=== PATIENT | male | born 1960 | race Caucasian/White ===

== ENCOUNTER → 2017-11-05 07:23 | Outpatient (CLI) | payer OTHER, SELFPAY ==
[2017-11-05 08:53] LABS: ALB/GLOB Ratio 1.3 RATIO (0.9-2.4); AST(SGOT) 18 U/L (15-37); Alanine Aminotransfer ALT/SGPT 30 U/L (16-61); Albumin, Serum 3.8 g/dL (3.2-5.0); Alkaline Phosphatase 50 U/L (45-117); Anion Gap 8 (5-15); BUN 21 mg/dL (7-18); Calcium,Total 8.6 mg/dL (8.5-10.1); Chloride 104 mmol/L (98-107); Cholesterol 149 mg/dL (200); EST Glomerular Filtration Rate 82 mL/min (>60); Est Glom Filt Rate - Afr Amer 100 mL/min (>60); Glucose 102 mg/dL (74-106); High Density Lipoprotein 42 mg/dL; PSA,Total - Annual Screen 2.77 ng/mL (0.00-4.00); Potassium 4.2 mmol/L (3.5-5.1); Protein, Total 6.8 g/dL (6.4-8.2); Sodium Level 142 mmol/L (136-145); Thyroid Stim Hormone (TSH) 2.89 uIU/mL (0.358-3.74); Triglycerides 119 mg/dL; Very Low Density Lipoprotein 24 mg/dL (5-40)
[2017-11-06 10:26] LABS: Vitamin B12 1195 pg/mL (211-911)
== END ==
PROVIDERS: Family Provider Family Medicine; PCP Family Medicine
DX: I10 Essential (primary) hypertension (principal); E78.00 Pure hypercholesterolemia, unspecified; E53.8 Deficiency of other specified B group vitamins; Z12.5 Encounter for screening for malignant neoplasm of prostate
CPT/HCPCS: 36415; 80053; 80061; 82607; 83735; 84153; 84443; G0103

== ENCOUNTER 2018-03-10 11:23 | Day surgery (SDC) | payer OTHER, SELFPAY ==
--- NOTE | 2018-03-07 13:50 | HP.PCM_ITS ---
History and Physical Date of Admission: 03/07/18 HISTORY AND PHYSICAL ? Jd Baumann 1960 ? REFERRING PHYSICIAN: ??Self ? CHIEF COMPLAINT: ??Consult (colonoscopy) ? HPI: The patient is a 57 year old male referred for endoscopy. ?Jd notes a personal history of colon polyps. ?Most recent colonoscopy with polypectomy was in 2014 which demonstrated a tubular adenoma, 3-year follow-up recommended. ?He denies any change in bowel habits, weight changes, blood in stools, black tarry stools or abdominal pain. ?He notes a family history of colon cancer in a maternal grandfather, no first-degree relatives with colon cancer. ? ?Patient notes a history of acid reflux, underwent EGD by Dr. Spears in October 2016. ?He was noted to have significant esophagitis concerning for Red's, with final pathology negative for Red's. ?Dr. Spears recommended repeat EGD in 3 years as well as daily PPI, which patient has been taking as instructed and notes this has helped significantly with his reflux. ? Patient's medical history is significant for hypertension, hypercholesterolemia. ?He denies any cardiac or pulmonary issues. ?Denies problems with sedation in the past. ? ? PAST MEDICAL HISTORY PAST MEDICAL HISTORY Diagnosis Date ? High cholesterol ? ? HTN (hypertension) ? ? Kidney stone ? ? ? PAST SURGICAL HISTORY PAST SURGICAL HISTORY Procedure Laterality Date ? COLONOS W/REM POLYP SNARE ? 03/02/13 ? multiple polyps ? COLONOS W/REM POLYP SNARE ? 07/26/14 ? small polyp proximal transverse colon - 3 year follow up ? COLONOSCOP W/ OR W/O BRS SPEC ? 03/08/13 ? post polypectomy bleed ? EGD W/O [facility] SPECIMEN W/BX ? 10/12/2016 ? GERD with esophagitis, negative for Red's - recommend 3 year follow up ? HERNIA REPAIR HX ? 2004 ? [place] - done at [facility] - mesh removed and then replaced ? HERNIA REPAIR HX ? 1986 ? Left - [facility] - mesh ? KNEE SCOPE,DIAGNOSTIC ? 2004 ? left - done at [facility] ? LAP REPAIR INTIAL INGUINAL HERNIA ? 04/22/13 ? Right ? REPAIR ING HERNIA,5+Y/O,REDUCIBL ? 1979 ? left - [facility], age 19 - no mesh ? REPAIR RECURR INGUIN SERVANDO,REDUCIBL ? 07/28/14 ? right direct ? REPAIR RECURR INGUIN SERVANDO,RUDDY ? 04/22/13 ? Left recurrent ? ? CURRENT MEDICATIONS ? Current Outpatient Prescriptions: omeprazole (PRILOSEC) 20 mg capsule Take 20 mg by mouth once daily. Tadalafil (CIALIS) 5 mg tablet Take 5 mg by mouth once daily. losartan (COZAAR) 50 mg tablet Take 50 mg by mouth once daily. PRAVASTATIN SODIUM (PRAVASTATIN ORAL) Take 20 mg by mouth once daily. famotidine (PEPCID) 20 mg tablet Take 20 mg by mouth once daily. ? No current facility-administered medications for this visit. ? ALLERGIES: Patient has no known allergies. ? PERSONAL HISTORY: SOCIAL HISTORY Social History ??Marital status: ?Spouse name: ?Years of education: ?Number of children: ? Social History Main Topics ??Smoking status: Never Smoker ?Smokeless tobacco: Former User ?Alcohol use: Yes ?Comment: occasional ??Drug use: No ?Sexual activity: Yes ?Partners with: Female ? control/protection: Vasectomy ? ? FAMILY HISTORY: FAMILY HISTORY FAMILY HISTORY Problem Relation Age of Onset ? Cancer Mother ? ? Colon Cancer Maternal Grandfather ? ? Prostate Cancer Maternal Grandfather ? ? Coronary Artery Disease Father ? ? other (heart disease) Father ? ? REVIEW OF SYMPTOMS: ??The review of systems data was entered by the nurse and reviewed by me ? Nursing Notes: Paulette Walters RN ?02/07/2018 ?1:11 PM ?Signed REVIEW OF SYSTEMS: ?General:???The patient denies fatigue, denies weight loss, denies weight gain, denies feeling hot, and denies feelings of cold. ?Eyes: ?The patient denies glaucoma, denies eye injury/surgery, wears glasses or contacts. ?Ear/Nose/Throat: ?The patient denies allergies, denies hayfever, denies ear infections, and denies bloody noses. ?Cardiovascular: ?The patient denies chest pain, denies heart disease, notes high blood pressure,denies cardiac stent, denies prior heart attack, denies irregular heart beat, notes high cholesterol, ?denies poor circulation, denies heart failure, other cardiac issues, denies claudication, denies cold feet, denies peripheral arterial stent. ?Respiratory: ?The patient denies tuberculosis, denies pneumonia, denies frequent cough, denies pulmonary embolism, denies shortness of breath, and denies coughing up blood. ?Gastrointestinal: ?The patient denies difficulty swallowing, denies acid reflux, denies ulcers, denies vomiting, denies jaundice/hepatitis, denies gallbladder problems, denies black or tarry stools, denies hemorrhoids, denies bleeding from rectum, denies diverticulitis, denies constipation, denies diarrhea, denies loss of stool control, and denies hernias. ?Kidney/Bladder: ?The patient notes kidney stones, denies urine infections, and denies bloody urine. ?Skin: ?The patient denies a history of skin cancer, denies bleeding/changi ng moles, and denies a history of skin rash. ?Neurologic: ?The patient denies a history of epilepsy/convulsions, denies headaches, denies head/spinal injuries, and denies stroke/TIA. ?Psychiatric: ?The patient denies psychiatric medications, denies depression, and denies voices, denies substance abuse. ?Endocrine: ?The patient denies thyroid disorders, denies diabetes, and denies hormonal problems. ?Hematologic: ?The patient denies a history of bruising, denies bleeding, and denies anemia, denies blood clots. ?Infections: ?The patient denies a history of measles and mumps, denies rheumatic fever, and denies sexually transmitted diseases. ?Musculoskeletal: ?The patient denies back pain/injury, denies back problems, denies sciatica, denies knee/foot trouble, denies arthritis, or denies gout. ? ? When was patient's last Mammogram screening? N/A ? ?Last Colonoscopy: ?08/2014 ? Paulette Walters RN? I have confirmed and edited as necessary, the PFSH and ROS obtained by others. ? ? PHYSICAL EXAMINATION: ? General: ?The patient is 57 year old male, well nourished, well hydrated in no acute distress. ?The patient is oriented to time, place, and person. ? VITALS: Blood pressure 152/92, pulse 72, weight 107.4 kg (236 lb 12.8 oz).?Body mass index is 32.12 kg/m?.? ? HEENT: ?Normal cephalic, ataumatic, pupils are equally round, sclera are anicteric, mucous membranes are moist, oropharynx is clear. ?Neck has no masses, asymmetry or lymphadenopathy. ? ? Respiratory: ?Clear to auscultation and percussion. ?Normal respiratory excursion and pattern. ? Cardiac: ?Examination is regular rate and rhythm. ? Abdominal exam: ?Soft, nontender, ?with no palpable masses. ?No hepatosplenomegaly. ?No palpable hernias. ? Rectal exam: exam deferred ? Extremities: ?no clubbing, cyanosis or edema. ?No adenopathy. ? Other: ? LABORATORY VALUES: As Noted ? RADIOLOGIC STUDIES: ?As Noted ? ? Assessment ? IMPRESSION: encounter for screening colonoscopy. ? ? PLAN: ?We will plan for screening colonoscopy. ?We discussed the risks and benefits of the planned endoscopy. ?I have informed the patient that complications can occur including failure to complete the endoscopy and perforation. ?The patient had the opportunity to ask questions concerning the planned endoscopy. ?My staff has also explained the procedure to the patient in understandable terms and has given the patient printed material concerning the procedure. ?The patient freely consents to surgery. ? I plan to use golytely bowel preparation for endoscopy ? Discussed also that he will be due for repeat EGD in [address] Spears's last note-recall letter generated ? Diagnoses: (Z12.11) Encounter for screening for malignant neoplasm of colon ?(primary encounter diagnosis) (Z86.010) History of colonic polyps ? My findings have been forwarded to Dr. Garth Cordero MD. ?? Return to Clinic: The patient is instructed to follow-up with me 1 week post operatively. ? Makayla White PA-C
[2018-03-10] VITALS (7 sets, daily range): BP systolic 133–151; BP diastolic 88–98; PULSE 65–77; RESP 16; TEMP 36.6–37; O2SAT 94–99; BMI 31.3
--- NOTE | 2018-03-10 14:38 | OP.ENDO_ITS ---
Patient Name: Jd Baumann Procedure Date: 03/10/2018 2:10 PM Date of : 1960 Age: 57 Procedure: Colonoscopy Indications: High risk colon cancer surveillance: Personal history of colonic polyps Providers: Blue Speasr MD Referring MD: Blue Spears MD Medicines: Monitored Anesthesia Care Patient Profile: This is a 57 year old male. Refer to note in patient chart for documentation of history and physical. Last Colonoscopy: 3 years ago. Complications: No immediate complications. Procedure: Pre-Anesthesia Assessment: - Prior to the procedure, a History and Physical was performed, and patient medications and allergies were reviewed. The patient is competent. The risks and benefits of the procedure and the sedation options and risks were discussed with the patient. All questions were answered and informed consent was obtained. Patient identification and proposed procedure were verified by the physician and the nurse in the procedure room. Mental Status Examination: alert and oriented. Airway Examination: normal oropharyngeal airway and neck mobility. Respiratory Examination: clear to auscultation. CV Examination: normal. Prophylactic Antibiotics: The patient does not require prophylactic antibiotics. Prior Anticoagulants: The patient has taken no previous anticoagulant or antiplatelet agents. ASA Grade Assessment: III - A patient with severe systemic disease. After reviewing the risks and benefits, the patient was deemed in satisfactory condition to undergo the procedure. The anesthesia plan was to use monitored anesthesia care (MAC). Immediately prior to administration of medications, the patient was re-assessed for adequacy to receive sedatives. The heart rate, respiratory rate, oxygen saturations, blood pressure, adequacy of pulmonary ventilation, and response to care were monitored throughout the procedure. The physical status of the patient was re-assessed after the procedure. After I obtained informed consent, the scope was passed under direct vision. Throughout the procedure, the patient's blood pressure, pulse, and oxygen saturations were monitored continuously. The colonoscope was introduced through the anus and advanced to the cecum, identified by the appendiceal orifice, ileocecal valve and palpation. The colonoscopy was performed without difficulty. The patient tolerated the procedure well. The quality of the bowel preparation was good. Scope In: 2:17:57 PM Scope Withdrawal Time 0 hours 5 minutes 40 seconds Scope Out: 2:28:43 PM Total Procedure Duration Time 0 hours 10 minutes 46 seconds Findings: The perianal and digital rectal examinations were normal. The entire examined colon appeared normal on direct and retroflexion views. Impression: - The entire examined colon is normal on direct and retroflexion views. - No specimens collected. Recommendation: - Discharge patient to home. - Resume previous diet. - Repeat colonoscopy in 5 years for surveillance. - Continue present medications. Blue Spears MD 03/10/2018 2:38:18 PM This report has been signed electronically. Number of Addenda: 0 Note Initiated On: 03/10/2018 2:10 PM
== END 2018-03-10 15:17 | disposition home or self-care (01) ==
LOC: EN 11:24 → AC 12:40
PROVIDERS: Family Provider Family Medicine; PCP Family Medicine; Referring Provider Surgery; Visit Provider Surgery
PROC: 0DJD8ZZ Inspection of Lower Intestinal Tract, Via Natural or Artificial Opening Endoscopic (ICD-10-PCS; CPT 45378; principal; 2018-03-10 13:55)
DX: Z12.11 Encounter for screening for malignant neoplasm of colon (principal); Z86.010 Personal history of colon polyps; Z80.0 Family history of malignant neoplasm of digestive organs; K21.9 Gastro-esophageal reflux disease without esophagitis; I10 Essential (primary) hypertension; E78.00 Pure hypercholesterolemia, unspecified
CPT/HCPCS: 45378; J7120

== ENCOUNTER → 2018-11-07 10:09 | Outpatient (CLI) | payer OTHER, SELFPAY ==
[2018-03-10 12:52] VITALS: BMI 31.3
[2018-11-07 12:09] LABS: ALB/GLOB Ratio 1.3 RATIO (0.9-2.4); AST(SGOT) 18 U/L (15-37); Alanine Aminotransfer ALT/SGPT 24 U/L (16-61); Albumin, Serum 3.9 g/dL (3.2-5.0); Alkaline Phosphatase 53 U/L (45-117); Anion Gap 5 (5-15); BUN 21 mg/dL (7-18); BUN/Creat Ratio 20.8 RATIO (10-20); Calcium,Total 8.5 mg/dL (8.5-10.1); Chloride 105 mmol/L (98-107); Cholesterol 141 mg/dL (200); Creatinine, Serum 1.01 mg/dL (0.70-1.30); EST Glomerular Filtration Rate 81 mL/min (>60); Est Glom Filt Rate - Afr Amer 98 mL/min (>60); Globulin 2.9 g/dL (2.2-4.2); Glucose 92 mg/dL (74-106); High Density Lipoprotein 41 mg/dL; Magnesium 1.9 mg/dL (1.6-2.6); PSA,Total - Annual Screen 3.23 ng/mL (0.00-4.00); Potassium 3.7 mmol/L (3.5-5.1); Protein, Total 6.8 g/dL (6.4-8.2); Sodium Level 137 mmol/L (136-145); Thyroid Stim Hormone (TSH) 1.65 uIU/mL (0.358-3.74); Triglycerides 77 mg/dL; Very Low Density Lipoprotein 15 mg/dL (5-40)
== END ==
PROVIDERS: Family Provider Family Medicine; PCP Family Medicine; Referring Provider Family Medicine; Visit Provider Family Medicine
DX: Z00.00 Encounter for general adult medical examination without abnormal findings (principal); Z12.5 Encounter for screening for malignant neoplasm of prostate
CPT/HCPCS: 36415; 80053; 80061; 83735; 84153; 84443; G0103

== ENCOUNTER → 2020-01-01 10:44 | Outpatient (CLI) | payer OTHER, SELFPAY ==
[2020-01-01 12:06] LABS: Vitamin B12 419 pg/mL (211-911)
[2020-01-01 12:11] LABS: ALB/GLOB Ratio 1.2 RATIO (0.9-2.4); AST(SGOT) 22 U/L (15-37); Alanine Aminotransfer ALT/SGPT 36 U/L (16-61); Albumin, Serum 3.8 g/dL (3.2-5.0); Alkaline Phosphatase 51 U/L (45-117); Anion Gap 4 (5-15); BUN 18 mg/dL (7-18); BUN/Creat Ratio 18.5 RATIO (10-20); Calcium,Total 8.4 mg/dL (8.5-10.1); Chloride 108 mmol/L (98-107); Cholesterol 179 mg/dL (200); Creatinine, Serum 0.97 mg/dL (0.70-1.30); EST Glomerular Filtration Rate 84 mL/min (>60); Est Glom Filt Rate - Afr Amer 102 mL/min (>60); Globulin 3.1 g/dL (2.2-4.2); Glucose 94 mg/dL (74-106); High Density Lipoprotein 44 mg/dL; Magnesium 2.2 mg/dL (1.6-2.6); PSA,Total - Annual Screen 3.95 ng/mL (0.00-4.00); Potassium 3.8 mmol/L (3.5-5.1); Protein, Total 6.9 g/dL (6.4-8.2); Sodium Level 138 mmol/L (136-145); Thyroid Stim Hormone (TSH) 1.52 uIU/mL (0.358-3.74); Triglycerides 108 mg/dL; Very Low Density Lipoprotein 22 mg/dL (5-40)
== END ==
PROVIDERS: PCP Family Medicine; Referring Provider Family Medicine; Visit Provider Family Medicine
DX: E78.00 Pure hypercholesterolemia, unspecified (principal); E53.8 Deficiency of other specified B group vitamins; I10 Essential (primary) hypertension
CPT/HCPCS: 36415; 80053; 80061; 82607; 83735; 84153; 84443; G0103

== ENCOUNTER 2020-01-04 06:45 | Emergency (ER) | payer OTHER, SELFPAY ==
[2020-01-04 06:45] VITALS: BP 154/103; PULSE 73; RESP 18; TEMP 36.6; O2SAT 98; BMI 29.8
--- NOTE | 2020-01-04 07:09 | RAD_ITS ---
STUDY: X-RAY - RIGHT FOOT CLINICAL: Male, 59 years old. stubbed 1st toe last night, pain -- laceration TECHNIQUE: 3 view(s) of the foot. COMPARISON: None. FINDINGS: Normal talus, calcaneus, and tarsal bones. Normal visualized subtalar, talonavicular, calcaneocuboid, tarsal and tarsometatarsal articulations. Normal metatarsi. There is degenerative arthrosis of the metatarsophalangeal joint of the hallux . Normal tibial and fibular sesamoid bones. Normal interphalangeal joint of the great toe. There is a comminuted nondisplaced fracture in the distal phalanx of the big toe. Normal second through fifth metatarsophalangeal joints. Normal interphalangeal joints and phalanges of the lesser toes. The soft tissue structures are unremarkable. RAD/Foot min 3 Views IMPRESSION: There is a comminuted nondisplaced fracture in the distal phalanx of the big toe. Electronically Signed: Damon Douglass, at 7:42 EDT Tel , Service support ,
--- NOTE | 2020-01-04 07:10 | ED.VISSUMM ---
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 He reports that he was walking in flip-flops this morning and the flip-flop stopped in his toes slid forward hitting the ground. He reports he had a sharp pain instead of 10 at worst and 6 out of 10 currently. Is worsened by walking and relieved by rest. Denies any paresthesias. He did not fall. He denies any other injuries. His tetanus is up-to-date. Review of systems: General: No fever, chills, cold sweats. Cardiovascular: No chest pain, palpitations. Respiratory: No cough, shortness of breath, dyspnea on exertion. Gastrointestinal: No abdominal pain, nausea, vomiting, diarrhea, melena, or hematochezia. Genitourinary: No dysuria, frequency, hematuria. Skin: No rash. Neuro: No headache, numbness, weakness. Physical Examination: Vitals: Stable. Afebrile. General: Well-nourished and well-developed. Head: Normocephalic atraumatic. Neck: Supple, no lymphadenopathy. No JVD. Nontender. Cardiovascular: Regular rate and rhythm. No murmurs. Respiratory: No respiratory distress. Clear to auscultation bilaterally. Abdominal: Soft, nontender, nondistended, normal bowel sounds. No guarding, rebound, or peritoneal signs. Back: Nontender. Extremities: Right great toe shows an exposed jagged fragment of bone just proximal to his nail. There is minimal active bleeding. He has a 2+ dorsalis pedis pulse. Skin: Normal color, no rash. Neurologic: Alert and oriented ?3. Cranial nerves II through XII are intact. Normal strength and sensation. Psych: Normal affect. Test Results: . Emergency De Clinical Impression(s) from Imaging Studies Foot X-Ray 01/04/20 07:09 IMPRESSION: There is a comminuted nondisplaced fracture in the distal phalanx of the big toe. Electronically Signed: Damon Douglass, at 7:42 EDT Tel , Service support , partment Course and Treatment: Patient refused pain medications. He had his nail removed and the bony fragment was placed back under the skin. He was given Ancef IV. He tolerated this well. Treatment Plan: Patient was discussed with . He will be discharged with Keflex and [place]. Instructed to follow-up in the office in 2 days for wound check. Instructed to follow-up with his primary care physician in 10 to 14 days for suture removal. Return to the emergency department for any worsening symptoms. Disposition: To home in improved and stable condition. Impression: 1. Laceration right great toe, 1 cm, repaired. 2. Right great toe distal phalanx fracture with exposed bone. Procedure note: Wound was cleansed with chlorhexidine soap. Anesthetized with bupivacaine without epinephrine as a digital block. The toenail was removed and it was copiously irrigated with normal saline. Wound was explored there is no foreign material present. The bony fragment was placed back under the skin. The nail was sewed back into place with 2 simple interrupted 4-0 Ethilon sutures. The skin was closed with 1 simple interrupted 4-0 ethilon sutures. The patient tolerated it well. This note was generated with Vouch dictation software. It may contain incorrect words, spelling, and punctuation that were not noted in review of the chart prior to signing ED Disposition - Plan for ED Patient: Instructions: ED Fx Toe Open Prescriptions: Cephalexin [Keflex] 500 mg PO Q6 #28 cap Prescription Printed Hydrocodone Bitart/Apap 5-325 [[place] 5MG-325MG] 1 tab PO Q4H PRN PRN 2 Days #10 tab PRN Reason: Pain Prescription Printed Referrals: Garth Cordero MD [Primary Care Provider] - 10-14 Days suture removal Lisa Brown DPM [STAFF PHYSICIAN] - 2 Days for wound check
[2020-01-04] MEDS: Cefazolin 2 GM in 0.9% Normal Saline 100 ML IV (07:50)
[2020-01-04] MEDS: Bupivacaine Mpf 0.5% 30 ML VIAL INFILT (07:50)
[2020-01-04 08:58] VITALS: BP 147/84; PULSE 79; RESP 18; O2SAT 99
--- NOTE | 2020-01-04 09:00 | ED.RN ---
THIS NURSE REVIEWED D/C INSTRUCTIONS WITH PT AND . BOTH VERBALIZED UNDERSTANDING OF INSTRUCTION. IV D/C. IV CATHETER INTACT. PT TOLERATED WELL. DRESSING APPLIED. PT DENIES FURTHER NEEDS OR QUESTIONS AT THIS TIME. PT AMBULATES FROM ROOM ON OWN WITHOUT ASSISTANCE FROM STAFF
== END 2020-01-04 09:11 | disposition home or self-care (01) ==
LOC: ED 07:20
PROVIDERS: Emergency Provider Emergency Medicine; PCP Family Medicine
DX: S91.111A Laceration without foreign body of right great toe without damage to nail, initial encounter (principal); S92.424A Nondisplaced fracture of distal phalanx of right great toe, initial encounter for closed fracture; W22.8XXA Striking against or struck by other objects, initial encounter; I10 Essential (primary) hypertension; E78.00 Pure hypercholesterolemia, unspecified; K21.9 Gastro-esophageal reflux disease without esophagitis; Z86.73 Personal history of transient ischemic attack (TIA), and cerebral infarction without residual deficits
CPT/HCPCS: 11750; 73630; 96365; 99285; J7050; A4216

== ENCOUNTER 2020-09-14 10:16 | Outpatient (RCR) | payer OTHER, SELFPAY | END 2020-10-19 23:59 | LOC: IMMUN 10:16 | PROVIDERS: PCP Family Medicine; Referring Provider Family Medicine; Visit Provider Family Medicine | DX: Z23 Encounter for immunization (principal) | CPT/HCPCS: 0001A; 91300 ==

== ENCOUNTER → 2021-01-09 15:31 | Outpatient (CLI) | payer OTHER, SELFPAY ==
[2021-01-09 17:48] LABS: Vitamin B12 420 pg/mL (211-911)
[2021-01-09 17:52] LABS: ALB/GLOB Ratio 1.4 RATIO (0.9-2.4); AST(SGOT) 15 U/L (15-37); Alanine Aminotransfer ALT/SGPT 26 U/L (16-61); Alkaline Phosphatase 50 U/L (45-117); Anion Gap 6 (5-15); BUN 14 mg/dL (7-18); BUN/Creat Ratio 16.9 RATIO (10-20); Calcium,Total 8.5 mg/dL (8.5-10.1); Chloride 104 mmol/L (98-107); Cholesterol 178 mg/dL (200); Creatinine, Serum 0.83 mg/dL (0.70-1.30); EST Glomerular Filtration Rate 101 mL/min (>60); Est Glom Filt Rate - Afr Amer 122 mL/min (>60); Globulin 2.9 g/dL (2.2-4.2); Glucose 87 mg/dL (74-106); High Density Lipoprotein 46 mg/dL; Magnesium 2.2 mg/dL (1.6-2.6); PSA,Total - Annual Screen 4.48 ng/mL (0.00-4.00); Potassium 3.6 mmol/L (3.5-5.1); Protein, Total 6.9 g/dL (6.4-8.2); Sodium Level 138 mmol/L (136-145); Thyroid Stim Hormone (TSH) 2.55 uIU/mL (0.358-3.74); Triglycerides 93 mg/dL; Very Low Density Lipoprotein 19 mg/dL (5-40)
== END ==
PROVIDERS: PCP Family Medicine; Visit Provider Family Medicine
DX: Z00.00 Encounter for general adult medical examination without abnormal findings (principal); Z12.5 Encounter for screening for malignant neoplasm of prostate; E78.00 Pure hypercholesterolemia, unspecified; I10 Essential (primary) hypertension; K21.9 Gastro-esophageal reflux disease without esophagitis; E53.8 Deficiency of other specified B group vitamins
CPT/HCPCS: 36415; 80053; 80061; 82607; 83735; 84153; 84443; G0103

== ENCOUNTER 2021-01-11 15:33 | Emergency (ER) | payer OTHER, SELFPAY ==
[2021-01-11 15:34] VITALS: BP 163/100; PULSE 99; RESP 17; TEMP 36.4; O2SAT 95; BMI 31.9
--- NOTE | 2021-01-11 16:05 | EX.ED.UPPERE ---
HPI History of Present Illness Chief Complaint: Laceration Informant: patient Narrative Narrative: Patient presents with right hand small finger injury. It got pinched or cut with a grain auger. He states he does not think he got to the bone. It really does not hurt. It created a flap or the distal aspect of his right small finger. Bleeding is controlled with pressure. He denies any anticoagulation. He states he was supposed to take aspirin but has not had it in a long time. Of note, he also missed his high blood pressure meds this morning. He states that is not typical for him. Nothing really makes his symptoms better or worse. He denies any other injury other than the tip of his right small finger. Last tetanus was in October 2016. Tetanus Immunization: <5 years PFSH PFSH Home Medications losartan 50 mg PO QHS 07/21/14 [History Last Taken 07/27/14 20:00] tadalafil [Cialis] 5 mg PO DAILY 12/25/15 [History Last Taken Unknown] pravastatin 40 mg PO DAILY #30 tab 12/27/15 [Rx Last Taken Unknown] multivitamin [Daily Multiple Vitamin] 1 ea PO DAILY 10/12/16 [History Last Taken Unknown] cyanocobalamin (vitamin B-12) [Vitamin B-12] 500 mcg PO DAILY 03/06/18 [History Last Taken Unknown] omeprazole magnesium [Prilosec Otc] 20 mg PO QHS 03/06/18 [History Last Taken Unknown] Allergy/AdvReac Type Severity Reaction Status Date / Time No Known Allergies Allergy Verified 01/11/21 15:34 Social History Smoking Status: Smoker, status unknown ROS [facility] ED Gastrointestinal Gastrointestinal: Denies nausea or vomiting Musculoskeletal Musculoskeletal: Reports other Details: Trauma to right hand/small finger as in history of present illness. Integumentary Reports other Details: Laceration to right small finger. Hematologic/Lymphatic Hematologic/Lymphatic: Denies easy bleeding or easy bruising EXAM Physical Exam Const Vital Signs: 01/11/21 15:34 Temperature 97.6 F L Temperature Source Temporal Pulse Rate 99 Respiratory Rate 17 Blood Pressure 163/100 H Blood Pressure Mean 121 Pulse Ox 95 Oxygen Delivery Method Room Air Positive well nourished and well developed General Appearance ED: well developed and NAD HEENT Reports moist mucous membranes Resp normal respiratory effort Extremity Extremity Narrative: Right hand has a bandage on this area. I am getting equipment ready and we will take a look at it when we perform anesthesia and repair. Psych mental status grossly normal Attitude: No agitated Mood & Affect: Negative for anxious Skin Trauma: laceration MDM MDM MDM Narrative Medical decision making narrative: Procedure: Suture laceration: I anesthetized the finger with digital block using 3 cc of 1% lidocaine without epinephrine. Moderate anesthesia was achieved. However, this was oozing. Total length laceration was 5 cm, we therefore took down the dressing. I updated the anesthesia more locally. It was oozing diffusely from the wound. There was nothing pulsatile or focal area of bleeding. We put it turnicot around the finger. It was then copiously scrubbed and irrigated until clean. It was sutured with 10 interrupted 4-0 Ethilon. We did this sequentially. We did not put them under much tension. There is some open space between each 1 to allow drainage. This flap was held on only by about a centimeter of tissue in the front at most. It was dusky. I have serious concerns of its longevity or if it will take. However, I think it is worth the attempt. After the procedure, the tourniquet was taken down. The finger pinked up quite well. There is no significant bleeding. There is minimal ooze with small drops on the tissue occasionally. He has been watched for over 40 minutes and it still the same. It seems to be clotting well. I looked at his films. I see no sign of fracture on three-view x-ray of his right hand. I talk with the patient. I have concerns of this tissue taking. It is very dusky in the pretty significant amount of injury. He understands this. He thought he might lose the whole tip of the finger. I explained that that still could happen. He will elevate it and keep it clean and dry. Because of the amount of soft tissue injury, I will start him on Keflex also attempting to reduce the rate of infection. We discussed returning with any bleeding, pain, redness, drainage, fever or other concerns. Discharge Plan Triage Chief Complaint: Laceration ED Provider: Artemio Norton Dx/Rx/DC Orders Clinical Impression: Laceration of right little finger Instructions: ED Laceration, Hand: All Closures Prescriptions: No Action losartan 50 MG tablet 50 mg PO QHS RF: 0 tadalafil [Cialis] 5 MG tablet 5 mg PO DAILY RF: 0 pravastatin 40 MG tablet 40 mg PO DAILY Qty: 30 RF: 0 multivitamin [Daily Multiple] 1 EACH tablet 1 ea PO DAILY RF: 0 cyanocobalamin (vitamin B-12) [Vitamin B-12] 500 MCG tablet 500 mcg PO DAILY RF: 0 omeprazole magnesium [Prilosec OTC] 20 MG tablet,delayed release (DR/EC) 20 mg PO QHS RF: 0 Primary Care Provider: Garth Cordero Referrals: Garth Cordero MD [Primary Care Provider] - Sae Jin MD [STAFF PHYSICIAN] - 3-5 Days if not improving Activity Restrictions/Additional Instructions: Sutures out in 10-14 days. Disposition Disposition: Home, Self Care
[2021-01-11] MEDS: Lidocaine 1% (20 ml mdv) 20 ML Vial INFILT (16:37)
--- NOTE | 2021-01-11 17:10 | RAD_ITS ---
STUDY: X-RAY - RIGHT HAND REASON FOR EXAM: Male, 60 years old. smashing injury of 5th digit, initial PA taken with gauze on, later imaging performed with gauze removed and bleeding more controlled TECHNIQUE: 4 view(s) of the hand. COMPARISON: None. FINDINGS: Mild soft tissue swelling is present around the distal phalanx of the fifth digit. No visualized fracture. Normal radiocarpal articulation. Normal distal radioulnar joint. Normal visualized carpal bones. Normal carpal articulations Normal carpometacarpal articulation of the thumb. Normal second through fifth carpometacarpal joints. Normal metacarpi. Normal metacarpophalangeal joint of the thumb. Normal interphalangeal joint of the thumb. Normal proximal and distal phalanges of the thumb. Normal metacarpophalangeal joints of the second through fifth fingers. Normal proximal and distal interphalangeal joints of the second through fifth fingers. Normal phalanges of the second through fifth fingers. RAD/Hand Min 3 Views IMPRESSION: Mild soft tissue swelling around the distal phalanx of the fifth digit Electronically Signed: Gilbert Castaneda MD at 18:16 EDT , Service support ,
== END 2021-01-11 17:52 | disposition home or self-care (01) ==
PROVIDERS: Emergency Provider Emergency Medicine; PCP Family Medicine
DX: S61.216A Laceration without foreign body of right little finger without damage to nail, initial encounter (principal); W30.89XA Contact with other specified agricultural machinery, initial encounter; Y92.9 Unspecified place or not applicable; Y99.9 Unspecified external cause status; F17.200 Nicotine dependence, unspecified, uncomplicated
CPT/HCPCS: 12002; 73130; 99284; A4216

== ENCOUNTER → 2022-01-18 | Outpatient (CLI) | payer OTHER, SELFPAY ==
[2022-01-18 12:18] LABS: Vitamin B12 650 pg/mL (211-911)
[2022-01-18 12:26] LABS: ALB/GLOB Ratio 1.2 RATIO (0.9-2.4); AST(SGOT) 21 U/L (15-37); Alanine Aminotransfer ALT/SGPT 37 U/L (16-61); Albumin, Serum 3.8 g/dL (3.2-5.0); Alkaline Phosphatase 53 U/L (45-117); Anion Gap 5 (5-15); BUN 20 mg/dL (7-18); BUN/Creat Ratio 20.8 RATIO (10-20); Chloride 103 mmol/L (98-107); Cholesterol 160 mg/dL (200); Creatinine, Serum 0.96 mg/dL (0.70-1.30); EST Glomerular Filtration Rate 85 mL/min (>60); Est Glom Filt Rate - Afr Amer 102 mL/min (>60); Globulin 3.1 g/dL (2.2-4.2); Glucose 100 mg/dL (74-106); High Density Lipoprotein 47 mg/dL; Magnesium 2.1 mg/dL (1.6-2.6); PSA,Total - Annual Screen 4.15 ng/mL (0.00-4.00); Potassium 3.9 mmol/L (3.5-5.1); Protein, Total 6.9 g/dL (6.4-8.2); Sodium Level 138 mmol/L (136-145); Thyroid Stim Hormone (TSH) 1.78 uIU/mL (0.358-3.74); Triglycerides 85 mg/dL; Very Low Density Lipoprotein 17 mg/dL (5-40)
== END | disposition home or self-care (01) ==
LOC: LAB 11:21
PROVIDERS: PCP Family Medicine; Referring Provider Family Medicine; Visit Provider Family Medicine
DX: Z00.00 Encounter for general adult medical examination without abnormal findings (principal); Z12.5 Encounter for screening for malignant neoplasm of prostate
CPT/HCPCS: 36415; 80053; 80061; 82607; 83735; 84153; 84443; G0103

== ENCOUNTER → 2022-05-28 | Outpatient (CLI) | payer OTHER, SELFPAY ==
--- NOTE | 2022-05-28 06:38 | CT_ITS ---
PROCEDURE: CT LEFT KNEE WITHOUT CONTRAST REASON FOR EXAM: Male, 61 years old. Preoperative planning for the [employer] Robotic knee surgery. Knee pain. TECHNIQUE: Transaxial CT of the hip, knee and ankle were obtained. Coronal and sagittal reconstruction images of the knee were provided. Individualized dose optimization techniques were used for this CT. COMPARISON: None. FINDINGS: Standard protocol for the preoperative planning for the [employer] robotic knee surgery was performed. Mild arthrosis of the hip, moderate tricompartmental arthrosis of the and mild arthrosis of the tibiotalar and subtalar joints.. CT/Extremity Lower without Contra IMPRESSION: Preoperative [employer] Robotic knee surgical CT evaluation with findings as described above. Electronically Signed: Matthew Vitale, at 9:19 EST ,
== END | disposition home or self-care (01) ==
LOC: CT 06:34
PROVIDERS: PCP Family Medicine; Referring Provider Specialist; Visit Provider Specialist
DX: Z01.818 Encounter for other preprocedural examination (principal); M17.12 Unilateral primary osteoarthritis, left knee; M19.079 Primary osteoarthritis, unspecified ankle and foot; M16.10 Unilateral primary osteoarthritis, unspecified hip; M21.162 Varus deformity, not elsewhere classified, left knee
CPT/HCPCS: 73700

== ENCOUNTER 2022-05-30 05:26 | Day surgery (SDC) | payer OTHER, SELFPAY ==
--- NOTE | 2022-05-30 | COLBX_PTH ---
PATIENT: HUMZA SOLO LOC: EN U#:[id number] AGE/SX: 61/M ROOM: RE05/30/[address]: Dr. Gustavo Hdz DO : 1960 BED: DIS: 05/30/2022 SPEC #: [id number] RECD: 05/30/22 13:10 STATUS: YVETTE GLADYS #: [id number] ADA: 05/30/22 00:[address]: Gustavo Hdz DEPT: SURGICAL PATHOLOGY RECD BY: Bebeto Light ENTERED: 05/30/22 13:10 SP TYPE: COLON BX KESHAV DR: Dr. Garth Cordero MD Tissues: A - COLON BIOPSY B - Ascending colon C - Transverse colon Procedures: Surgery Specimen Level IV HEADER OPERATION: Colonoscopy ? open access (MAC), biopsy PRE-OP DIAGNOSIS: Screening TISSUE SUBMITTED: A ? Hepatic flexure polyp biopsy, B ? Ascending colon polyp biopsy, C ? Transverse polyps (x2) biopsy MICROSCOPIC DIAGNOSIS A. Colonic polyp at hepatic flexure, biopsy: Hyperplastic polyp. B. Ascending colon polyp, biopsy: Tubular adenoma. C. Transverse colon polyps, biopsy: Tubular adenoma. Hyperplastic polyp. AM:tristian 05/31/2022 MICROSCOPIC DESCRIPTION Slides are reviewed. GROSS DESCRIPTION A - Received in fixative is one container labeled with the patient's name and designated hepatic flexure polyp biopsy. The specimen consists of two irregular fragments of light nickerson soft tissue that in aggregate measure 0.6 x 0.3 x 0.1 cm. The specimen is totally submitted in one cassette. B - Received in fixative is one container labeled with the patient's name and designated ascending polyp biopsy. The specimen consists of one irregular fragment of light nickerson soft tissue that measures 0.3 x 0.3 x 0.1 cm. The specimen is totally submitted in one cassette. C - Received in fixative is one container labeled with the patient's name and designated transverse polyp biopsy. The specimen consists of two irregular fragments of light nickerson soft tissue that in aggregate measure 0.6 x 0.4 x 0.1 cm. The specimen is totally submitted in one cassette. / VANDANA:tristian 05/30/2022 TC:5 CPT: 88188 x3
[2022-05-30] MEDS: Lactated Ringers 1,000 ML 15 ML IV (05:45)
[2022-05-30 06:00] VITALS: BP 140/85; PULSE 77; RESP 18; TEMP 36.1; O2SAT 99; BMI 31.4
--- NOTE | 2022-05-30 06:35 | HP.PCM_ITS ---
HPI - General General Date of Admission: 05/30/22 Date of Service: 05/30/22 Chief Complaint: Screening colonoscopy HPI Narrative HUMZA SOLO, is a 61 M who presents today for screening colonoscopy. He has not had a colonoscopy in the past. He is not have any abdominal pain. He is not have any nausea. Denies have any chest pain or shortness of breath. Overall is in very good health. FOR[facility]LY [facility] Medical History (Updated 05/28/22 @ 12:29 by Dania Barnes) Alcohol use Arthritis Bladder disease BPH NOS w ur obs/LUTS GERD (gastroesophageal reflux disease) High cholesterol History of echocardiogram History of edema History of GI bleed History of pain when walking Hyperlipidemia Hypertension Laceration of right little finger Leg cramps Migraine headache Non-smoker Open wound PAD (peripheral artery disease) Prostate disease TIA (transient ischemic attack) Tinnitus Wears glasses Home Medications losartan 50 mg tablet 50 mg PO QHS 07/21/14 [History Last Taken 05/29/22] tadalafil 5 mg tablet (Cialis) 5 mg PO QHS 12/25/15 [History Last Taken 05/29/22] multivitamin (Daily Multiple tablet) 1 ea PO DAILY 10/12/16 [History Last Taken 05/29/22] cyanocobalamin (vitamin B-12) 500 mcg tablet (Vitamin B-12) 500 mcg PO DAILY 03/06/18 [History Last Taken 05/29/22] omeprazole magnesium 20 mg tablet,delayed release (Prilosec OTC) 20 mg PO QHS 03/06/18 [History Last Taken 05/29/22] pravastatin 40 mg tablet 20 mg PO DAILY 05/28/22 [History Last Taken 05/29/22] aspirin 81 mg tablet 81 mg PO DAILY 05/30/22 [History Last Taken 05/23/22] Allergy/AdvReac Type Severity Reaction Status Date / Time No Known Allergies Allergy Verified 05/30/22 05:59 Family History (Updated 03/26/22 @ 09:36 by Mirtha Mckeon) Grandfather Colon cancer Surgical History (Updated 05/28/22 @ 12:29 by Dania Barnes) History of colonoscopy History of esophagogastroduodenoscopy (EGD) Hx of arthroscopic knee surgery Hx of inguinal hernia surgery Social History (Updated 03/26/22 @ 09:37 by Mirtha Mckeon) household members: spouse Smoking Status: Never smoker ROS Review of Systems ROS Unobtainable: other Constitutional Constitutional: Denies fatigue, fever(s), poor appetite, weight gain or weight loss ENT HEENT: Denies mouth lesions Cardiovascular Cardiovascular: Denies abdominal bloating, abdominal edema or abdominal pain Respiratory/Chest Respiratory/Chest: Denies change in mental status, change in phlegm color, chest congestion or chest tightness Gastrointestinal Gastrointestinal: Denies belching, bloating, change in bowel habits, change in stool character, chewing difficulty, coffee ground emesis, constipation, cramping, diarrhea, dyspepsia, dysphagia, early satiety, excessive flatus, fecal incontinence, heartburn, hematemesis, hematochezia, hemorrhoids, loose stools, melena, nausea, odynophagia, rectal bleeding, tenesmus, vomiting or weight changes Genitourinary Genitourinary: Denies abdominal discomfort, burning urination or itching Musculoskeletal Musculoskeletal: Reports as per HPI; Denies muscle weakness or myalgias Integumentary Integumentary: Denies jaundice Neurologic Neurologic: Denies lack of coordination or weakness Psychiatric Psychiatric: Denies confusion, depression, memory loss, mood swings, paranoia or suicidal ideation Endocrine Endocrinology: Denies systems reviewed and no addt'l complaints, except as documented Hematologic/Lymphatic Hematologic/Lymphatic: Denies anemia, easy bleeding, easy bruising or lympha denopathy Allergic/Immunologic Allergic/Immunologic: Denies systems reviewed and no addt'l complaints, except as documented Vital Signs Vital Signs Vital Signs: 05/30/22 06:00 05/30/22 06:00 Temperature 96.9 F L Temperature Source Temporal Pulse Rate 77 Respiratory Rate 18 Respiratory Pattern Normal Blood Pressure 140/85 H Blood Pressure Mean 103 Blood Pressure Source Monitor Blood Pressure Position Sitting Blood Pressure Location Right Arm Pulse Ox 99 Oxygen Delivery Method Room Air Weight Weight: 231 lb 7.766 oz Body Mass Index (BMI) 31.4 Physical Exam Const alert General Appearance: cooperative Orientation / Consciousness: oriented to person HEENT hearing grossly normal bilaterally Head and Scalp: normal to inspection Face and Sinus: face symmetric Nose: external nose normal Mouth: oral and palatal mucosa normal Eyes conjunctivae normal General Eye: normal appearance of both eyes Neck full ROM General: normal visual inspection Lymph Lymphatic: no lymphadenopathy noted Chest inspection of chest normal and palpation of chest normal Chest: symmetrical chest wall rise Resp normal respiratory effort Effort and Inspection: able to speak in complete sentences Cardio regular rate GI non-distended Percussion: normal to percussion Rectal Exam: deferred Neuro Speech: speech normal Gait (Neuro): normal gait Assessment & Plan Assessment/Plan (1) Encounter for screening for malignant neoplasm of colon: PLAN: He was explained alternatives, risk, benefits including not withstanding bleeding, infection, sepsis, perforation, need for emergent surgery . He will have an ASA of 1.
--- NOTE | 2022-05-30 07:02 | OP.COLON_ITS ---
Patient Name: Jd Baumann Procedure Date: 05/30/2022 6:24 AM Date of : 1960 Age: 61 Procedure: Colonoscopy Indications: Screening for colorectal malignant neoplasm Providers: Gustavo Hdz DO Medicines: Monitored Anesthesia Care Patient Profile: This is a 61 year old male. Refer to note in patient chart for documentation of history and physical. Last Colonoscopy: 5 years ago. Complications: No immediate complications. Procedure: Pre-Anesthesia Assessment: - Prior to the procedure, a History and Physical was performed, and patient medications and allergies were reviewed. The risks and benefits of the procedure and the sedation options and risks were discussed with the patient. All questions were answered and informed consent was obtained. Patient identification and proposed procedure were verified by the physician in the pre-procedure area. Mental Status Examination: alert and oriented. Airway Examination: normal oropharyngeal airway and neck mobility. Respiratory Examination: clear to auscultation. CV Examination: normal. Prophylactic Antibiotics: The patient does not require prophylactic antibiotics. Prior Anticoagulants: The patient has taken no previous anticoagulant or antiplatelet agents. After reviewing the risks and benefits, the patient was deemed in satisfactory condition to undergo the procedure. The anesthesia plan was to use monitored anesthesia care (MAC). Immediately prior to administration of medications, the patient was re-assessed for adequacy to receive sedatives. The heart rate, respiratory rate, oxygen saturations, blood pressure, adequacy of pulmonary ventilation, and response to care were monitored throughout the procedure. The physical status of the patient was re-assessed after the procedure. After I obtained informed consent, the scope was passed under direct vision. Throughout the procedure, the patient's blood pressure, pulse, and oxygen saturations were monitored continuously. The colonoscope was introduced through the anus and advanced to the cecum, identified by appendiceal orifice and ileocecal valve. The colonoscopy was performed without difficulty. The patient tolerated the procedure well. The quality of the bowel preparation was good. Moderate Sedation: Moderate (conscious) sedation was personally administered by an anesthesia professional. The following parameters were monitored: oxygen saturation, heart rate, blood pressure, respiratory rate, EKG, adequacy of pulmonary ventilation, and response to care. Scope In: 6:41:29 AM Scope Withdrawal Time 0 hours 9 minutes 51 seconds Scope Out: 6:55:45 AM Total Procedure Duration Time 0 hours 14 minutes 16 seconds Findings: The perianal and digital rectal examinations were normal. Many small and large-mouthed diverticula were found in the recto-sigmoid colon, sigmoid colon, descending colon, transverse colon and hepatic flexure. Three sessile polyps were found in the transverse colon, hepatic flexure and ascending colon. The polyps were 1 to 2 mm in size. These polyps were removed with a cold snare. Resection and retrieval were complete. Verification of patient identification for the specimen was done. Estimated blood loss was minimal. Impression: - Diverticulosis in the recto-sigmoid colon, in the sigmoid colon, in the descending colon, in the transverse colon and at the hepatic flexure. - Three 1 to 2 mm polyps in the transverse colon, at the hepatic flexure and in the ascending colon, removed with a cold snare. Resected and retrieved. Recommendation: - Repeat colonoscopy in 5 years for surveillance. - Continue present medications. Procedure Code(s): --- Professional --- 98329, Colonoscopy, flexible; with removal of tumor(s), polyp(s), or other lesion(s) by snare technique CPT copyright 2017 [employer]. All rights reserved. The codes documented in this report are preliminary and upon patent solicitor review may be revised to meet current compliance requirements. Gustavo Hdz DO 05/30/2022 7:01:22 AM This report has been signed electronically. Number of Addenda: 0 Note Initiated On: 05/30/2022 6:24 AM
--- NOTE | 2022-05-30 07:02 | OP.CCLET_ITS ---
05/30/2022 Garth Cordero Re : Colonoscopy procedure for Jd Baumann Dear Gil This procedure was performed on Monday, May 30, 2022. My impressions and recommendations are as follows: Impressions : - Diverticulosis in the recto-sigmoid colon, in the sigmoid colon, in the descending colon, in the transverse colon and at the hepatic flexure. - Three 1 to 2 mm polyps in the transverse colon, at the hepatic flexure and in the ascending colon, removed with a cold snare. Resected and retrieved. Recommendations : - Repeat colonoscopy in 5 years for surveillance. - Continue present medications. My findings are described in the full procedure note, which is enclosed. If I can be of further assistance, please feel free to contact me at . Sincerely, Gustavo Hdz, 05/30/2022 7:01:22 AM This report has been signed electronically.
[2022-05-30 07:05] VITALS: BP 110/90; BP 140/85; PULSE 69; RESP 18; O2SAT 97
[2022-05-30 07:06] VITALS: BP 116/77; BP 140/85; PULSE 67; RESP 18; TEMP 36.1; O2SAT 95
[2022-05-30 07:10] VITALS: BP 118/81; BP 140/85; PULSE 66; RESP 18; O2SAT 98
[2022-05-30 07:14] VITALS: BP 125/92; BP 140/85; PULSE 63; RESP 18; TEMP 36.2; O2SAT 97
[2022-05-30 07:29] VITALS: BP 140/85
== END 2022-05-30 07:53 | disposition home or self-care (01) ==
LOC: EN 05:27 → AC 05:28
PROVIDERS: PCP Family Medicine; Referring Provider Family Medicine; Visit Provider Internal Medicine Gastroenterology
PROC: 0DJD8ZZ Inspection of Lower Intestinal Tract, Via Natural or Artificial Opening Endoscopic (ICD-10-PCS; CPT 45378; principal; 2022-05-30 06:25)
DX: Z12.11 Encounter for screening for malignant neoplasm of colon (principal); K63.5 Polyp of colon; Z80.0 Family history of malignant neoplasm of digestive organs; Z90.49 Acquired absence of other specified parts of digestive tract; K57.90 Diverticulosis of intestine, part unspecified, without perforation or abscess without bleeding; Z86.73 Personal history of transient ischemic attack (TIA), and cerebral infarction without residual deficits
CPT/HCPCS: 45385; 88305; J7120; J2405

== ENCOUNTER 2022-06-13 05:27 | Day surgery (SDC) | payer OTHER, SELFPAY ==
--- NOTE | 2022-05-28 11:53 | PCM.HP.BLA ---
History and Physical History and Physical [facility] Patient Name: Jd Baumann : 1960 From:? WIL LANCASTER PA-C? DATE OF SURGERY:? 06/13/2022 SCHEDULED PROCEDURE:? Left total knee arthroplasty HISTORY OF PRESENT ILLNESS: Preoperative history and physical exam was performed on May 28, 2022.? This is a 61-year-old male who is been having ongoing pain for several years with his left knee.? He has seen significant progression over the past 8-9 months.? His pain can reach as high as an 8/10 with activity.? Pain is aching, sharp.? He has start up pain.? Pain is increased with going up and down stairs and walking.? Pain is located over the medial aspect of the knee.? Pain does awaken him at night.? He has difficulty with activities of daily living including leisure activity such as work and hiking.? He has tripped/stumble due to the pain.? Patient does report having a previous knee arthroscopy in 2004 at an outside institution with relief following surgery.? Patient has tried rest, ice, heat, elevation with minimal relief.? He has tried oral medications including Advil with minimal relief.? He has done home exercises.? After failing conservative measures and discussing treatment options with Dr. Sae Jin, the patient does wish to proceed with a left total knee arthroplasty.? He has also had previous corticosteroid injection approximately 3 years ago with minimal relief.? Patient does have medical history pertinent for hypertension and gastroesophageal reflux disease.? Denies any previous DVT or pulmonary embolism.? We are obtaining surgical clearance from the primary care physician Dr. Cordero.?? REVIEW OF SYSTEMS: Review Of Systems: Constitutional: Denies change in appetite, fever and weight change. Cardiovasular: Denies chest pain, heart murmur and irregular heartbeat. Respiratory: Denies cough, pneumonia, shortness of breath, tuberculosis and wheezing. Gastrointestinal: Reports heartburn, but denies constipation, diarrhea, nausea, rectal itching, bloody stools and vomiting. Musculoskeletal: Reports gait disturbance, pain and swelling, but denies trouble walking and weakness. Skin: Denies Raynaud's, history of shingles and tattoo. Neurological: Denies ambulatory dysfunction, dizziness, numbness/tingling and tremor. Psychiatric: Denies anxiety, insomnia and stress. Hematologic/Lymphatic: Reports bleeding/clotting disorder and past transfusion, but denies anemia and bleeding/bruising tendency. Reviewed and updated. PAST MEDICAL HISTORY: Advance Care Plan: Other Directive, POA Effective Date: 01/30/2022 Other Directive, LIVING WILL Effective Date: 01/30/2022 Past Medical History: Medical Problems: Acid Reflux, High Blood Pressure, Hypercholesterolemia Accidents: Fracture - (2020) RT FOOT? Surgical Hx: Hernia Repair - 1979,1980,1993,2004,2014 Arthoscopy - (2004) LT KNEE/2004//GEO BWNHEART Anesthesia Complications: None Assistive Devices: Glasses Reviewed and updated. SOCIAL HISTORY: Social History: Marital: .Occupation: [employer].Work Status: Currently Working.Hand Dominance: Right-handed. Personal Habits:? Cigarette Use: Never Smoked Cigarettes.Smokeless Tobacco: Former User.E-Cigarette Use: Never Used.Alcohol: Weekly use.Drug Use: Denies Use.Enjoy Exercising: Exercises 1-3 x/month. Reviewed and updated. VITALS: Ht: 73 Wt: 232lb Wt k.235 BMI: 30.6 BP: 136/86 Pulse: 76 Resp: 12 T: 98.0 T: 36.7C Pain Level: 4 O2SatR: 97 ALLERGIES: No Known Drug Allergy? MEDICATIONS: Oxycodone HCL 5 mg 1-2 tab by mouth every 4 hours, Meloxicam 7.5 mg 1 by mouth twice a day, Zofran 4 mg one by mouth every 8 as needed nausea, Losartan Potassium 50 mg 1 by mouth every day, Pravastatin Sodium 20 mg 1 by mouth every day, Vitamin B12 1000 mcg 1 by mouth every day, Cialis 5 mg 1 PO qdaily, Multi Vitamin? take one(1) tablet daily., Omeprazole 20 mg 1 by mouth every day PRE-OP EXAM:? General appearance:NORMAL? ? ? Other: Eyes: Conjunctivae and lids: NORMAL? Pupils: ERR Ears, Nose, Mouth, and Throat: NORMAL? Other: Inspection of lips, teeth and gums: NORMAL? ?Other: Neck: Examination of neck: no masses noted. Respiratory: Assessment of respiratory effort: NORMAL? ?Other: ?Auscultation of lungs: clear to auscultation no wheezes, rhonchi or rales. Cardiovascular:? Auscultation of heart: regular rate and rhythm, no murmurs, gallops or rubs. PHYSICAL EXAMINATION: Patient does walk with an antalgic gait.? His left knee has tenderness to palpation over the medial joint line.? He has moderate effusion.? He has correctable varus alignment on exam.? Range of motion: 0 extension to 125 flexion.? He has laxity with anterior and posterior drawer exam.? Sensation intact to light touch. IMAGING STUDIES: Previous x-rays reveal varus alignment with medial joint space narrowing, subchondral sclerosis, osteophyte formation consistent with severe stage IV bone on bone erosive osteoarthritis IMPRESSION: 1.? Severe left knee osteoarthritis with varus deformity 2.? Hypertension 3.? Gastroesophageal reflux disease 4.? Hypercholesterolemia PLAN: Dr. Sae Jin did discuss and review with the patient all treatment options including surgical versus nonsurgical options.? Patient does wish to proceed with the above-stated procedure.? Potential risks, benefits, and complications of the procedure were discussed in detail including but not limited to , infection, nerve and blood vessel damage, persistent pain, numbness, tingling, paresthesias, blood clot, pulmonary embolism, and requirement for possible further surgery.? The patient expressed full understanding and has no further questions for the doctor.? Patient does agree to proceed with the above-stated procedure and has signed the surgery consent form. We discussed the current risks associated with COVID 19.? This does include the risk of exposure while in the hospital.? Patient was reassured local hospitals have low infection rates and are taking all necessary precautions to avoid exposure to patients.? In addition, we discussed strategies that can be used to help limit exposure including those that limit the patient's time in the hospital.? Also using strategies to limit the patient's need for continued inpatient services after being discharged from the hospital.? Patient was notified that we will need to comply with any screening or testing the hospital wishes to perform or that surgery may be delayed for any positive results. This dictation was created using voice recognition software. Phonetic and/or grammatical errors may exist. ___? I have re-examined the patient.? There are no clinical changes since date of exam. ___? See progress notes for changes. ___? Dictated on admission Date: ? ? ?Time: Signature:
--- NOTE | 2022-05-30 08:55 | EKG12_ITS ---
Test Reason : PRE OP Blood Pressure : / mmHG Vent. Rate : 069 BPM Atrial Rate : 069 BPM P-R Int : 166 ms QRS Dur : 086 ms QT Int : 390 ms P-R-T Axes : 064 050 051 degrees QTc Int : 417 ms Normal sinus rhythm Normal ECG Confirmed by AIME LARA, MALIKA ([id number]), tape editor JOSE JAUREGUI ([id number]) on 05/31/2022 8:39:18 AM Referred By: Sae Jin Confirmed By:MALIKA SALOMON MD
[2022-05-30 09:06] LABS: Absolute Lymphocyte Count 1.63 X10^3/uL (0.83-4.51); Absolute Neutrophil Count 5.1 X10^3/uL (2.0-7.7); Basophil# 0.05 X10^3/uL; Basophil% 0.7 % (0-1); Eosinophils% 1.3 % (0-5); Hemoglobin 15.7 g/dL (13.0-16.5); Lymphocyte # 1.63 X10^3/ul (0.83-4.51); Mean Corp Hgb Conc 34.1 g/dL (32-36); Mean Corpuscular Hgb 30.4 pg (27.0-32.0); Mean Corpuscular Volume 89.1 fL (80-94); Mean Platelet Vol. 10.4 fl (6.2-12.0); Monocyte# 0.48 X10^3/uL; Monocyte% 6.5 % (0-10); NRBC Flagged by Analyzer 0 % (0-5); Neutrophil # 5.12 X10^3/uL (2.7-7.7); Platelet Count 212 K/mm3 (150-450); RBC Distribution Width CV 12.9 % (11.6-14.6); RBC Distribution Width SD 42.3 fl (35.1-43.9); Red Blood Count 5.16 M/mm3 (4.6-6.2); White Blood Count 7.4 K/mm3 (4.4-11.0)
[2022-05-30 09:30] LABS: Magnesium 2.2 mg/dL (1.6-2.6)
[2022-05-30 09:32] LABS: Albumin, Serum 3.7 g/dL (3.2-5.0); Anion Gap 5 (5-15); BUN 13 mg/dL (7-18); BUN/Creat Ratio 12.7 RATIO (10-20); Calcium,Total 8.6 mg/dL (8.5-10.1); Chloride 105 mmol/L (98-107); Creatinine, Serum 1.02 mg/dL (0.70-1.30); EST Glomerular Filtration Rate 79 mL/min (>60); Est Glom Filt Rate - Afr Amer 96 mL/min (>60); Glucose 140 mg/dL (74-106); Potassium 4.3 mmol/L (3.5-5.1); Sodium Level 140 mmol/L (136-145)
[2022-05-30 09:40] LABS: Hemoglobin A1c 5.2 % (3.8-5.6)
[2022-06-13] VITALS (15 sets, daily range): BP systolic 98–148; BP diastolic 48–94; PULSE 72–100; RESP 16; TEMP 36–37; O2SAT 95–99; BMI 30.5
[2022-06-13] MEDS: Lactated Ringers 1,000 ML 15 ML IV (06:22)
[2022-06-13] MEDS: Acetaminophen 500 MG Tablet 1000 MG PO (06:23)
[2022-06-13] MEDS: Celecoxib 200 MG Capsule 400 MG PO (06:24)
[2022-06-13] MEDS: Magnesium 1 GM over 15 mins IV (06:24)
[2022-06-13] MEDS: Gabapentin 600 MG Tablet PO (06:24)
--- NOTE | 2022-06-13 07:22 | OP.PCM_ITS ---
Report of Operation Date of Procedure: 06/13/22 Pre-Operative Diagnosis: Left knee primary osteoarthritis Post-Operative Diagnosis: Left knee primary osteoarthritis Surgery/Procedure Performed:: Left knee minimally invasive robotic assisted total knee replacement Description of Surgical Findings:: Stable knee with good patella tracking Surgeon: Sae Jin distribution driver: Doyle Ribeiro Type of Anesthesia: Spinal Anesthesiologist: Ti Cooper Special Medications: 2 g Ancef, 1 g TXA at incision, 1 g TXA closure, 10 mg Decadron, joint cocktail (5 mg Duramorph, 30 mL of 0.5% Ropivicaine, 1000 units of epinephrine, 30 mg of Toradol) Specimen's removed: Bony cuts Estimated Blood Loss (mL): 100 Fluids Replaced: 500 ml crystalloid Description of Procedure: Implants used: 1. Sinai size 6 triathlon cruciate retaining distal femoral press-fit component 2. May size 7 press-fit tritanium tibial baseplate 3. Sinai X3 10 mm cs polyethylene 4. Sinai X3 40 mm PF asymmetric patella Brief history operative indications: 61-year-old M with history of left knee osteoarthritis with radiographic findings with loss of joint space, osteophyte formation and subchondral sclerosis. Failed conservative measures as mentioned in the H&P. Discussion of total knee arthroplasty as well as risk and benefits were discussed the patient including but not limited to blood loss, DVTs, PEs, neurovascular damage, general risk of anesthesia including loss of life, and stiffness or instability were discussed with patient. Patient demonstrated understanding and was able to sign informed consent. Procedure: On the date of procedure patient's left lower extremity was marked in the preoperative area. The patient was then taken back to the operating room where the patient was placed on the table in the supine position. All bony prominences were identified a well-padded. Anesthesia assumed control of the C-spine and airway and remained controlled throughout the remainder of the procedure. A tourniquet was placed on the left upper thigh and the leg was prepped in a sterile fashion. The surgeon then scrubbed at this time .Upon reentering the room left lower extremity was draped in a standard orthopedic fashion. A timeout was then called and everyone agreed upon the side, the site, the procedure to be performed, patient's identity and antibiotics given. Esmarch bandage was used to exsanguinate the extremity and the tourniquet was placed up to 250 mmHg with the knee in flexion. A midline skin incision was made and sharp dissection was taken down through skin subcutaneous tissue and fat. The standard medial parapatellar incision was made and the patella was subluxed laterally. An Appropriate deep MCL release was done and the fat pad was resected. Our attention was then directed to the patella. The patella was everted and a flat resection was made. The knee was then flexed up in 2 femoral pins were placed inside the incision and 2 tibial pins were placed outside the incision in the medial tibia bicortically. Once this was completed the 2 checkpoints in the femur and tibia were placed. Knee was then flexed up and the bony landmarks were registered. Once this was completed knee was taken through range of motion and manually stressed allowing us to a plan for an appropriate tibial cut. The robotic arm was brought into the field sterilely and checkpoint and saw were registered. Based on the patient's deformity the tibial cut was made in 3 degrees varus. At this time the tensioner was then placed in the joint and ligament tension was checked at 90 degrees and full extension. Based on the patient's ligamentous tension appropriate adjustments were made to the operative plan and ligament releases were done. Once we were happy with our operative plan with balanced flexion and extension gaps our attention was directed to the femur. The robot was brought into the field sterilely and registered. Posterior condylar cuts, anterior chamfer cuts and anterior cuts were appropriately made for a size 6 femur. When these were completed the saws were switched out in the distal femoral and posterior chamfer cuts were made. Protecting the soft tissue throughout this time. A size 7 tibial base plate was selected. the knee was flexed to 90 degrees and the soft tissues and posterior osteophytes were removed from the joint. 40 cc of the periarticular injection was injected into the posterior medial corner of the joint. The appropriate trials were then placed on the femur and tibia. A trial polyethylene was trialed to ensure proper balancing and stability of the knee. The appropriate tibial internal rotation was then marked with a bovie. Our attention was then directed to the patella. The lug holes were drilled and the patella trial was placed. Patellar tracking was checked and deemed appropriate. Once we were happy lug holes were drilled for the femur and trial components were removed. the tibia was subluxed and pinned into place and the keel was punched and drilled appropriately. Final components were verified and opened, and cement was mixed in a vacuum. new test company [employer]plex cement was used. The wound was copiously irrigated with normal saline. When the cement was ready the components were impacted into place starting with the tibia, femur and finally the patella. The trial poly component was placed and the knee was placed in full extension. All excess cement was removed in the process. Once the cement had cured the tracking, alignment and balance were verified and a size 10 mm CS polyethylene component was placed. Once the final components were placed a 3-minute dilute Betadine lavage was performed followed by an Irrisept lavage was performed and the wound was copiously irrigated with normal saline solution and the periarticular injection was given. The wound was closed in a layer hernandez fashion using #1 vicryl interrupted sutures for the arthrotomy, 2-0 interrupted Vicryl suture for the subcuticular layer and almita for final skin closure. A sterile compressive dressing was then placed. The patient was then awakened from anesthesia, transferred to the [place] and transferred to the PACU for recovery. Post op plan DVT ppx: ASA 81mg BID, thigh high compression stockings Follow up: in office in 2 weeks for wound check PT: to start POD #0 at hospital, outpatient PT should be arranged. My physician child welfare assistant was a vital part of this case. He was important in appropriate retraction during the case, and protection of soft tissues during bony cuts. His intimate knowledge of the case and my steps aided in safe and expedient completion of the procedure as well as appropriate position of the leg during the case. He was also vital in assisting with closure under my direct supervision. Due to the complexity of this case robotic arm was used to assist in the surgery to improve accuracy and clinical outcomes. Complications No intraoperative complications Admit VTE Documentation VTE Present on Admission: No VTE Mechan Device Prophylaxis: SCD's and Thigh High RADHA Hose VTE Pharm Prophylaxis ordered?: Yes
[2022-06-13] MEDS: Cefazolin 2 GM in 0.9% Normal Saline 100 ML IV (07:25)
--- NOTE | 2022-06-13 07:30 | KNEE_PTH ---
PATIENT: HUMZA SOLO LOC: [facility] [place] U#:[id number] AGE/SX: 61/M ROOM: RE06/13/[address]: Dr. Sae Jin MD : 1960 BED: DIS: 06/13/2022 SPEC #: [id number] RECD: 06/13/22 11:24 STATUS: YVETTE GRAHAM #: [id number] ADA: 06/13/22 07:[address]: Sae Jin DEPT: SURGICAL PATHOLOGY RECD BY: Tan Zhou ENTERED: 06/13/22 13:42 SP TYPE: TOTAL KNEE OTHR DR: Dr. Garth Cordero MD Tissues: Knee, NOS Procedures: Decalcification bone/plaque Surgery Specimen Level IV HEADER OPERATION: Total knee replacement robotic arm assist PRE-OP DIAGNOSIS: Severe left knee osteoarthritis with varus deformity TISSUE SUBMITTED: Left knee bone and tissue MICROSCOPIC DIAGNOSIS Bone and tissue of left knee, total knee resection: Severe degenerative joint disease. Mild synovial hyperplasia. AM:tristian 06/18/2022 MICROSCOPIC DESCRIPTION Slides are reviewed. GROSS DESCRIPTION Received is one container designated bone and soft tissue left knee. The specimen consists of multiple fragments of nickerson-yellow bone measuring in aggregate 13 x 10 x 4 cm. Also in the specimen container are multiple fragments of yellow-white soft tissue measuring in aggregate 4 x 3.5 x 1 cm. A number of bony fragments contain articular surfaces consistent with tibial plateau and femoral condyle and displaying prominent osteophyte formation, eburnation and bone erosion. Dragline Mechanic sections are submitted in two cassettes as follows: 1 - soft tissue, 2 - bone after decalcification. / SJ:tristian 06/13/2022 TC:5 [facility]: [id number]
[2022-06-13] MEDS: TXA 1000mg in NS100 100ml (IVPB at Incision) 660 MG IV (07:35)
[2022-06-13] MEDS: dexAMETHasone 10 MG/ML Vial IV (07:35)
[2022-06-13 07:45] LABS: Bedside Glucose 97 mg/dL (74-106)
[2022-06-13] MEDS: TXA 1000mg in NS100 100ml (IVPB at Closure) 660 MG IV (08:23)
--- NOTE | 2022-06-13 08:52 | HP.PCM_ITS ---
HPI - General HPI Narrative HUMZA SOLO, is a 61 M who presents [facility] [place] Medical History Alcohol use Arthritis Bladder disease BPH NOS w ur obs/LUTS GERD (gastroesophageal reflux disease) High cholesterol History of echocardiogram History of edema History of GI bleed History of pain when walking Hyperlipidemia Hypertension Laceration of right little finger Leg cramps Migraine headache Non-smoker Open wound PAD (peripheral artery disease) Prostate disease TIA (transient ischemic attack) Tinnitus Wears glasses Home Medications losartan 50 mg tablet 50 mg PO QHS 07/21/14 [History Last Taken 06/12/22] tadalafil 5 mg tablet (Cialis) 5 mg PO QHS 12/25/15 [History Last Taken 06/12/22] multivitamin (Daily Multiple tablet) 1 ea PO DAILY 10/12/16 [History Last Taken 06/12/22] cyanocobalamin (vitamin B-12) 500 mcg tablet (Vitamin B-12) 500 mcg PO DAILY 03/06/18 [History Last Taken 06/12/22] omeprazole magnesium 20 mg tablet,delayed release (Prilosec OTC) 20 mg PO QHS 03/06/18 [History Last Taken 06/12/22] pravastatin 40 mg tablet 20 mg PO DAILY 05/28/22 [History Last Taken 06/12/22] aspirin 81 mg tablet 81 mg PO DAILY 05/30/22 [History Last Taken 06/05/22] Allergy/AdvReac Type Severity Reaction Status Date / Time No Known Allergies Allergy Verified 05/30/22 08:19 Family History (Updated 03/26/22 @ 09:36 by Mirtha Mckeon) Grandfather Colon cancer Surgical History History of colonoscopy History of esophagogastroduodenoscopy (EGD) Hx of arthroscopic knee surgery Hx of colonoscopy with polypectomy Hx of inguinal hernia surgery Social History (Updated 03/26/22 @ 09:37 by Mirtha Mckeon) household members: spouse Smoking Status: Never smoker Vital Signs Vital Signs Vital Signs: 06/13/22 06:18 06/13/22 06:18 Temperature 97.6 F L Temperature Source Temporal Pulse Rate 75 Respiratory Rate 16 Respiratory Pattern Normal Blood Pressure 140/84 H Blood Pressure Mean 102 Blood Pressure Source Monitor Blood Pressure Position Semi-Fowlers Blood Pressure Location Right Arm Pulse Ox 95 Oxygen Delivery Method Room Air Weight Weight: 231 lb 7.766 oz Body Mass Index (BMI) 30.5 Results Lab / Micro Data Result Diagrams: 05/30/22 08:44 05/30/22 08:44 Labs: Laboratory Results - last 24 hr 06/13/22 05:58: POC Glucose 97
[2022-06-13] MEDS: Lactated Ringers 1,000 ML 125 ML IV (09:09)
[2022-06-13] MEDS: Lactated Ringers 1,000 ML 999 ML IV (09:09)
--- NOTE | 2022-06-13 09:10 | RAD_ITS ---
STUDY: X-RAY - LEFT KNEE REASON FOR EXAM: Male, 61 years old. L TKA -- in PACU TECHNIQUE: 2 view(s) of the knee. COMPARISON: None. FINDINGS: Normal visualized distal femur. Normal visualized proximal tibia and fibula. Normal proximal tibiofibular articulation. The patient is status post total knee replacement. There is good alignment. Postoperative soft tissue changes. RAD/Knee 1 or 2 Views IMPRESSION: Status post total knee replacement. There is good alignment. Postoperative soft tissue changes. Electronically Signed: Suleiman Tapia MD at 9:43 EST ,
[2022-06-13] MEDS: Cefazolin 1 GM/50 ML BAG IV (10:41)
== END 2022-06-13 13:23 | disposition home or self-care (01) ==
LOC: SDC 05:27 → AC 05:27
PROVIDERS: Anesthesiology; PCP Family Medicine; Referring Provider Specialist; Visit Provider Specialist
PROC: 0SRD0JZ Replacement of Left Knee Joint with Synthetic Substitute, Open Approach (ICD-10-PCS; CPT 27447; principal; 2022-06-13 07:00)
DX: M17.12 Unilateral primary osteoarthritis, left knee (principal); M21.162 Varus deformity, not elsewhere classified, left knee; I10 Essential (primary) hypertension; E78.00 Pure hypercholesterolemia, unspecified; N40.1 Benign prostatic hyperplasia with lower urinary tract symptoms; K21.9 Gastro-esophageal reflux disease without esophagitis; Z79.82 Long term (current) use of aspirin; Z79.899 Other long term (current) drug therapy; Z96.652 Presence of left artificial knee joint
CPT/HCPCS: 27447; S2900; 64447; 01402; 36415; 73560; 80048; 82040; 82962; 83036; 83735; 85025; 87081; 88305; 88311; 93005; 97162; C1776; J7120; J2405; J3475

== ENCOUNTER 2022-06-19 01:37 | Emergency (ER) | payer OTHER, SELFPAY ==
[2022-06-19 01:38] VITALS: BP 164/94; PULSE 97; RESP 16; TEMP 36.3; O2SAT 97; BMI 33.2
[2022-06-19 01:41] VITALS: BP 164/94; PULSE 97; RESP 16; TEMP 36.3; O2SAT 97
--- NOTE | 2022-06-19 02:12 | ED.VIS.LOWEX ---
HPI History of Present Illness Chief Complaint: Edema Informant: patient Narrative Narrative: Patient had a left total knee arthroplasty by Dr. Jin about 1 week ago. Earlier this past day, he had his second physical therapy appointment, he said it went very well, he was able to do a lot more than he expected with his knee. However subsequently he started having more swelling than he was before, as well as burning pain from his proximal calf up to his proximal left thigh. A lot of bruising is there, it has been changing since his surgery, may be getting worse. He is on aspirin but no anticoagulants. He denies any chest pain, shortness of breath, fevers, chills, discharge or bleeding from his surgical incision, and no numbness distally in the foot or pain radiating there. [facility] Medical History (Updated 06/19/22 @ 02:[address] Osman Rucker MD) Alcohol use Arthritis Bladder disease BPH NOS w ur obs/LUTS GERD (gastroesophageal reflux disease) High cholesterol History of echocardiogram History of edema History of GI bleed History of pain when walking Hyperlipidemia Hypertension Laceration of right little finger Leg cramps Migraine headache Non-smoker Open wound PAD (peripheral artery disease) Prostate disease TIA (transient ischemic attack) Tinnitus Wears glasses Home Medications losartan 50 mg tablet 50 mg PO QHS 07/21/14 [History Last Taken 06/12/22] tadalafil 5 mg tablet (Cialis) 5 mg PO QHS 12/25/15 [History Last Taken 06/12/22] multivitamin (Daily Multiple tablet) 1 ea PO DAILY 10/12/16 [History Last Taken 06/12/22] cyanocobalamin (vitamin B-12) 500 mcg tablet (Vitamin B-12) 500 mcg PO DAILY 03/06/18 [History Last Taken 06/12/22] omeprazole magnesium 20 mg tablet,delayed release (Prilosec OTC) 20 mg PO QHS 03/06/18 [History Last Taken 06/12/22] pravastatin 40 mg tablet 20 mg PO DAILY 05/28/22 [History Last Taken 06/12/22] aspirin 81 mg tablet 81 mg PO DAILY 05/30/22 [History Last Taken 06/05/22] Allergy/AdvReac Type Severity Reaction Status Date / Time No Known Allergies Allergy Verified 05/30/22 08:19 Family History (Updated 03/26/22 @ 09:36 by Mirtha Mckeon) Grandfather Colon cancer Surgical History History of colonoscopy History of esophagogastroduodenoscopy (EGD) Hx of arthroscopic knee surgery Hx of colonoscopy with polypectomy Hx of inguinal hernia surgery Social History (Updated 03/26/22 @ 09:37 by Mirtha Mckeon) household members: spouse Smoking Status: Never smoker ROS ROS ED Constitutional Constitutional ED: Denies chills or fever(s) Cardiovascular Cardiovascular: Denies chest pain, lightheadedness, palpitations or racing heartbeat Respiratory/Chest Respiratory/Chest: Denies dyspnea or dyspnea on exertion Musculoskeletal Musculoskeletal: Reports extremity pain and other Details: Left lower extremity swelling see HPI ; Denies neck pain Integumentary Denies Abrasions, rash or wounds Neurologic Neurologic: Denies paresthesias or weakness EXAM Physical Exam Const Vital Signs: 06/19/22 01:38 06/19/22 01:41 Temperature 97.4 F L 97.4 F L Temperature Source Temporal Temporal Pulse Rate 97 97 Respiratory Rate 16 16 Blood Pressure 164/94 H 164/94 H Blood Pressure Mean 117 117 Pulse Ox 97 97 Oxygen Delivery Method Room Air Room Air Positive well nourished and well developed General Appearance ED: well developed and NAD Neck full ROM and supple Back/Spine normal ROM and normal to inspection Extremity Extremity Narrative: Left lower extremity is edematous from the mid lower leg to the proximal thigh, there is no palpable inguinal lymphadenopathy or tenderness there. There is extensive ecchymosis medial thigh, throughout the anterior knee, all more prominent medially. Thigh is soft, swollen, but the compartments are soft. The ecchymotic areas are tender without any palpable cords. Calf is tender as well proximally. He can move the knee fairly well. No signs of dehiscence or infection at the surgical incision anteriorly which appears to be healing well. Good dorsalis pedis 2+/4 pulse distally, there is no ecchymosis in the distal lower leg of the foot. Neuro oriented x3, no focal motor deficits and no sensory deficits noted Sensorium / Orientation: alert Psych mental status grossly normal and thought process normal Skin no wounds Rashes: no rashes MDM MDM MDM Narrative Medical decision making narrative: This patient presents around 2 AM when duplex Doppler ultrasound is not available. That is a test I would recommend he have for this lower extremity. He does not appear to have compartment syndrome, he states it hurts, and it is tender, but he is not uncomfortable or in severe pain. He is neurovascularly intact distally, and in order to cover his bases with an empiric treatment for possible DVT, I gave him an injection of just over 1 mg/kg of Lovenox, and set him up for duplex Doppler ultrasound of left lower extremity in the morning, if positive that she give him plenty of time to get started on an oral anticoagulant. He is comfortable with that plan. Discharge Plan Triage Chief Complaint: Edema ED Provider: Osman Rucker Dx/Rx/DC Orders Clinical Impression: Swelling of left lower extremity Instructions: ED Peripheral Edema, Unilateral Prescriptions: No Action losartan 50 MG tablet 50 mg PO QHS Label Comments: blood pressure tadalafil [Cialis] 5 MG tablet 5 mg PO QHS Label Comments: erectile dysfunction multivitamin [Daily Multiple] 1 EACH tablet 1 ea PO DAILY cyanocobalamin (vitamin B-12) [Vitamin B-12] 500 MCG tablet 500 mcg PO DAILY omeprazole magnesium [Prilosec OTC] 20 MG tablet,delayed release (DR/EC) 20 mg PO QHS pravastatin 40 MG tablet 20 mg PO DAILY Label Comments: cholesterol aspirin 81 mg Tablet 81 mg PO DAILY Other Ambulatory Orders: Venous Duplex US, Unilateral (Stat) Facility: [facility] - Location: [facility] Ordered By: Dr. Osman Rucker Primary Care Provider: Garth Cordero Referrals: Garth Cordero MD [Primary Care Provider] - Disposition Disposition: Home, Self Care Discharge Date/Time: 06/19/22 02:25
[2022-06-19] MEDS: Enoxaparin 120 MG/0.8 ML Syringe SC (02:19)
== END 2022-06-19 02:25 | disposition home or self-care (01) ==
PROVIDERS: Emergency Provider Emergency Medicine; PCP Family Medicine; Visit Provider Emergency Medicine
DX: M79.89 Other specified soft tissue disorders (principal); I73.9 Peripheral vascular disease, unspecified; I10 Essential (primary) hypertension; E78.00 Pure hypercholesterolemia, unspecified; R60.9 Edema, unspecified; E78.5 Hyperlipidemia, unspecified; Z96.652 Presence of left artificial knee joint; Z86.73 Personal history of transient ischemic attack (TIA), and cerebral infarction without residual deficits
CPT/HCPCS: 99283

== ENCOUNTER → 2022-06-19 | Outpatient (CLI) | payer OTHER, SELFPAY ==
--- NOTE | 2022-06-19 09:57 | VDLE_ITS ---
Reason For Study: LLE SWELLING RIGHT LEFT CFV is compressible, spontaneous, phasic, CFV is compressible, spontaneous, phasic, competent and demonstrates normal competent, and demonstrates normal augmentation. augmentation. Procedure FV is compressible, spontaneous, phasic, This is a venous duplex using B-mode, color competent and demonstrates normal flow and spectral Doppler. augmentation. Exam performed in department. GSV is normal. The study was technically difficult. POP V is compressible, spontaneous, phasic, D/T LLE SWELLING. competent and demonstrates normal A preliminary report was called and/or faxed augmentation. to DR. HINSON@ [phone];DR. DELGADILLO PTV is compressible. [phone]. LT PerV is compressible. NON-VASACULAR structure noted in POP Fossa space measuring 2.02 x 2.09. VL/Venous Duplex US, Unilateral Interpretation Summary There is no evidence of left lower extremity deep vein thrombosis. Left great s aphenous vein appears patent and compressible segmentally. Left popliteal fossa structure 2.02 x 2.09 cm nonvascular otherwise consistent with a Nash's cyst. Clinical correlation would be appropr iate. Normal flow patterns right common femoral vein This examination was noted to be technically difficult Ordering Physician: Osman Rucker Referring Physician: CHRISSY DELGADILLO Performed By: Angela Henson, MOHINDERCS, RVT
== END | disposition home or self-care (01) ==
LOC: CVS 09:54
PROVIDERS: PCP Family Medicine; Referring Provider Emergency Medicine; Visit Provider Emergency Medicine
DX: M79.89 Other specified soft tissue disorders (principal)
CPT/HCPCS: 93971

== ENCOUNTER 2022-08-17 08:00 | Outpatient (RCR) | payer OTHER, SELFPAY ==
--- NOTE | 2022-06-18 08:50 | HP.PTEVAL_ITS ---
Patient's Visit Information HUMZA SOLO is a 61 year old M referred to Physical Therapy by Dr. Sae Jin MD with a diagnosis of L TKA. Date of Evaluation: 06/15/22 Physical Therapist: Nakul Mobley DPT - Visit Plan Frequency: 3x /Week Duration: 6 Weeks Plan: Start with ROM, progressing to iso strength then to CKC exercises. Progress gait as tolerated. May need vaso for edema as needed. - Subjective Pt. is here today for his initial evaluation with diagnosis of L TKA, DOS 06/13/22. Pt. arrives with FWW with report of good tolerance. He reports having some pain 2/10 pain, but only since the nerve block has worn off. Pt. reports no N/T. No excessive drainage noted, but his bandage is still in place. Pt. is having some trouble sleeping, but is more from an issue of having to use the bathroom more frequently, to be managed by PCP. No increase in L knee pain with sleeping. He has been good with his HEP at home for stretching and initial isometrics. 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 Pt. has to do some desk work with walking and a little bit of traveling in his car. Pt. is hopeful to get back to all recreational and work activities without limitations. - Pain L knee Pain Intensity (Out of 10): 3 Pain Intensity Range: 3, 8 - Objective POSTURE: Pt. has good posture in stance. Slight wt. shift to R side. PALPATION: Pt. has negative Homans sign. pt. has marked edema 4 cm difference at mid patella form L to R. NEURO: Pt. has has normal DTR of B Achilles. Pt. is able to rise on heels and toes without limitations. ROM: L knee 0-0-78deg. Pt. reports minimal soreness at end range extension, but more at flexion. MMT: Pt. RLE: knee extension: 57#, flexion 43#. LLE: ext 5#, flexion 21#. GAIT: Pt. ambulates with FWW with good tolerance. He has TKE during stance phase and descent swing knee flexion during swing. STAIRS: Pt. is able to negotiate with step to pattern. with use of BHR. - Balance/Special Test Scores Lower Extremity Functional Score: 26 TUG Test Time Seconds: 15.8 WOMAC Total Score: 47 WOMAC Percentatge: 51.0500 - Goals Goal 1:: LTG: Pt. to be I with HEP. Goal Time Frame: 4-6 Weeks Goal 2:: STG: Pt. to have increased L knee ROM to 0-0-120deg AROM. Goal Time Frame: 2-4 Weeks Goal 3:: LTG: Pt. to have increased LLE strength symmetrical to R side without increase in symptoms. Goal Time Frame: 4-6 Weeks Goal 4:: LTG: pt. to ambulate without issues with normal gait pattern without A D. Goal Time Frame: 4-6 Weeks Goal 5:: LTG: Pt. to negotiate steps with reciprocal pattern with use of 1 HR. Goal Time Frame: 4-6 Weeks - Rehabilitation Potential Physical Therapy Diagnosis: Pt. has signs and symptoms consistent with L TKA. Pt. is overall doing very well so far. Pt. has good ROM and is tolerating all functional mobility well. Pt. would benefit from PT to increase end range ROM, progress strength, and progress all of his functional mobility in order to get back to all functional and work activities without limitations. Rehabilitation Potential: Excellent - Anticipated Interventions Patient/Client Instruction: Educate patient on: Condition, Plan of Care, Risk Factors, Benefits of Fitness Program For the Purpose of:: To foster healthy habits, To improve decision making, To facilitate caregiver knowledge, To improve self management, To prevent re- injury, To improve ability to perform tasks related to life management Therapeutic Exercise to Include: Strength training, Power training, Endurance training, Coordination, Agility training, Postural training, Gait and locomotor training, Passive ROM, Active ROM For the Purpose of:: To decrease pain, To increase ROM, To improve nutrient delivery to tissue, To increase oxygenation perfusion, To improve muscle performance and motor function, To improve ability to perform ADL's, To improve gait and locomotor functions, To improve health and function, To foster healthy habits, To improve self management, To prevent re-injury, To improve ability to perform tasks related to life management Cryotherapy (ice pack, ice massage): Yes Thermo therapy (hot pack): Yes Vasopneumatic device: Yes For the Purpose of:: To decrease pain, To decrease swelling/inflammation, To increase ROM, To improve nutrient delivery to tissue Thank you for the opportunity to evaluate your patient. For Medicare and Medicare HMO plans, please review the plan of care and approve it. It will need to be FAXED BACK to us at [phone] for Medicare purposes. For Medicare only, by signing this I certify the plan of care. Please let me know if there are questions or concerns regarding this plan of care. Physician Signature: Date:
--- NOTE | 2022-07-26 15:47 | HP.PTREVAL_ITS ---
Dr. Sae Jin MD, It has been my pleasure to treat HUMZA SOLO over the last 18 visits for L TKA. Please see the progress note below for an update on the physical therapy plan of care! Subjective: Pt. reports being a little bit more sore today, I was on my feet for 5-6 hours yesterday on concrete and I am a little bit more sore now. Pt. reports being HEP compliant without issues. He continues to report increased swelling, but is slowly decreasing. Objective/Function: PROM: 0-0-120deg but fairly painful at end ranges, AROM 0-0-112deg. Measured in supine. MMT: Pt. is ~65% strength in L compared to R side. He does report some HS pain with knee flexion. gait: Pt. has pretty good gait pattern without increase in symptoms. STAIRS: Pt. has mild increase in symptoms with descending, slight functional weakness with push off on L side. He still has some marked edema, but is on his feet more than expected at this point in time. Pt. would benefit from PT to continue to progress ROM and to progress functional strengthening. Monitor edema and use vaso as needed. Plan Plan: Pt. would benefit from PT to continue to progress ROM and to progress functional strengthening. Monitor edema and use vaso as needed. Balance/Gait/Functional tests - Balance/Special Test Scores Lower Extremity Functional Score: 26 TUG Test Time Seconds: 15.8 Tug Test: <20 sec.=mostly independent WOMAC Total Score: 47 WOMAC Percentage: 51.0500 Goals Goal 1:: LTG: Pt. to be I with HEP. Goal Time Frame: 4-6 Weeks Goal Progress: Progressing Goal 2:: STG: Pt. to have increased L knee ROM to 0-0-120deg AROM. Goal Time Frame: 2-4 Weeks Goal Progress: Progressing Goal 3:: LTG: Pt. to have increased LLE strength symmetrical to R side without increase in symptoms. Goal Time Frame: 4-6 Weeks Goal Progress: Progressing Goal 4:: LTG: pt. to ambulate without issues with normal gait pattern without AD. Goal Time Frame: 4-6 Weeks Goal Progress: Progressing Goal 5:: LTG: Pt. to negotiate steps with reciprocal pattern with use of 1 HR. Goal Time Frame: 4-6 Weeks Goal Progress: Progressing Anticipated Interventions Patient/Client Instruction: Educate patient on: Condition, Plan of Care, Risk Factors, Benefits of Fitness Program For the Purpose of:: To foster healthy habits, To improve decision making, To facilitate caregiver knowledge, To improve self management, To prevent re- injury, To improve ability to perform tasks related to life management Therapeutic Exercise to Include: Strength training, Power training, Endurance training, Coordination, Agility training, Postural training, Gait and locomotor training, Passive ROM, Active ROM For the Purpose of:: To decrease pain, To increase ROM, To improve nutrient delivery to tissue, To increase oxygenation perfusion, To improve muscle performance and motor function, To improve ability to perform ADL's, To improve gait and locomotor functions, To improve health and function, To foster healthy habits, To improve self management, To prevent re-injury, To improve ability to perform tasks related to life management Cryotherapy (ice pack, ice massage): Yes Thermo therapy (hot pack): Yes Vasopneumatic device: Yes For the Purpose of:: To decrease pain, To decrease swelling/inflammation, To increase ROM, To improve nutrient delivery to tissue Please do not hesitate to contact me at [phone] by phone or if you have questions or concerns regarding this new plan of care! Sincerely, Nakul Mobley DPT
--- NOTE | 2022-08-17 08:38 | HP.PTREVAL_ITS ---
Dr. Sae Jin MD, It has been my pleasure to treat HUMZA SOLO over the last 26 visits for L TKA. Please see the progress note below for an update on the physical therapy plan of care! Subjective: Pt. reports I feel like I am getting back to normal. His hip and knee is doing much better. Pt. reports overall pleased. Pt. reports having no pain today. Objective/Function: Pt. is doing great. Pt. has 0-0-122deg of ROM of his L knee. full strength noted. No issues with gait, normal stair negotiation. No is no longer having any knee or hip pain. He does plan to join local gym to continue with strengthening. He is back to work without limitations. Plan Plan: Pt. is to continue to work on exercises on his onw. I will leave case open for a few weeks in case he does not continue to progress the way he hopes. Balance/Gait/Functional tests - Balance/Special Test Scores Lower Extremity Functional Score: 80 TUG Test Time Seconds: 15.8 Tug Test: <20 sec.=mostly independent WOMAC Total Score: 47 WOMAC Percentage: 51.0500 Goals Goal 1:: LTG: Pt. to be I with HEP. Goal Time Frame: 4-6 Weeks Goal Progress: Goal Met Goal 2:: STG: Pt. to have increased L knee ROM to 0-0-120deg AROM. Goal Time Frame: 2-4 Weeks Goal Progress: Goal Met Goal 3:: LTG: Pt. to have increased LLE strength symmetrical to R side without increase in symptoms. Goal Time Frame: 4-6 Weeks Goal Progress: Goal Met Goal 4:: LTG: pt. to ambulate without issues with normal gait pattern without AD. Goal Time Frame: 4-6 Weeks Goal Progress: Goal Met Goal 5:: LTG: Pt. to negotiate steps with reciprocal pattern with use of 1 HR. Goal Time Frame: 4-6 Weeks Goal Progress: Goal Met Anticipated Interventions Patient/Client Instruction: Educate patient on: Condition, Plan of Care, Risk Factors, Benefits of Fitness Program For the Purpose of:: To foster healthy habits, To improve decision making, To facilitate caregiver knowledge, To improve self management, To prevent re- injury, To improve ability to perform tasks related to life management Therapeutic Exercise to Include: Strength training, Power training, Endurance training, Coordination, Agility training, Postural training, Gait and locomotor training, Passive ROM, Active ROM For the Purpose of:: To decrease pain, To increase ROM, To improve nutrient delivery to tissue, To increase oxygenation perfusion, To improve muscle performance and motor function, To improve ability to perform ADL's, To improve gait and locomotor functions, To improve health and function, To foster healthy habits, To improve self management, To prevent re-injury, To improve ability to perform tasks related to life management Cryotherapy (ice pack, ice massage): Yes Thermo therapy (hot pack): Yes Vasopneumatic device: Yes For the Purpose of:: To decrease pain, To decrease swelling/inflammation, To increase ROM, To improve nutrient delivery to tissue Please do not hesitate to contact me at [phone] by phone or if you have questions or concerns regarding this new plan of care! Sincerely, Nakul Mobley DPT
== END 2022-08-17 19:00 | disposition home or self-care (01) ==
LOC: PT 08:00
PROVIDERS: PCP Family Medicine; Referring Provider Specialist; Visit Provider Specialist
DX: M17.32 Unilateral post-traumatic osteoarthritis, left knee (principal); Z47.1 Aftercare following joint replacement surgery; Z96.652 Presence of left artificial knee joint
CPT/HCPCS: 97016; 97110; 97161; 97164

== ENCOUNTER → 2023-01-11 | Outpatient (CLI) | payer OTHER, SELFPAY ==
[2023-01-11 12:20] LABS: ALB/GLOB Ratio 1.3 RATIO (0.9-2.4); AST(SGOT) 18 U/L (15-37); Alanine Aminotransfer ALT/SGPT 25 U/L (16-61); Albumin, Serum 3.8 g/dL (3.2-5.0); Alkaline Phosphatase 54 U/L (45-117); Anion Gap 5 (5-15); BUN 11 mg/dL (7-18); BUN/Creat Ratio 11.6 RATIO (10-20); Calcium,Total 8.6 mg/dL (8.5-10.1); Chloride 104 mmol/L (98-107); Cholesterol 141 mg/dL (200); Creatinine, Serum 0.95 mg/dL (0.70-1.30); EST Glomerular Filtration Rate 86 mL/min (>60); Est Glom Filt Rate - Afr Amer 104 mL/min (>60); Glucose 103 mg/dL (74-106); High Density Lipoprotein 43 mg/dL; Magnesium 2.3 mg/dL (1.6-2.6); PSA,Total - Annual Screen 5.56 ng/mL (0.00-4.00); Potassium 3.8 mmol/L (3.5-5.1); Protein, Total 6.8 g/dL (6.4-8.2); Sodium Level 137 mmol/L (136-145); Thyroid Stim Hormone (TSH) 2.32 uIU/mL (0.358-3.74); Triglycerides 110 mg/dL; Very Low Density Lipoprotein 22 mg/dL (5-40)
[2023-01-11 12:28] LABS: Hemoglobin A1c 5.2 % (3.8-5.6)
[2023-01-15 19:29] LABS: Vitamin B12 431 pg/mL (211-911)
== END | disposition home or self-care (01) ==
LOC: LAB 10:47
PROVIDERS: PCP Family Medicine; Referring Provider Family Medicine; Visit Provider Family Medicine
DX: Z00.00 Encounter for general adult medical examination without abnormal findings (principal); Z12.5 Encounter for screening for malignant neoplasm of prostate; R73.09 Other abnormal glucose
CPT/HCPCS: 36415; 80053; 80061; 82607; 83036; 83735; 84153; 84443; G0103

== ENCOUNTER 2024-04-01 08:13 | Day surgery (SDC) | payer OTHER, SELFPAY ==
--- NOTE | 2024-03-26 06:51 | EKG12_ITS ---
Test Reason : PREOP Blood Pressure : */* mmHG Vent. Rate : 71 BPM Atrial Rate : 71 BPM P-R Int : 158 ms QRS Dur : 88 ms QT Int : 406 ms P-R-T Axes : 55 28 35 degrees QTcB Int : 441 ms Normal sinus rhythm Normal ECG Confirmed by MIGUEL LARA, OLGA ([id number]), supervising editor news reel JOSE JAUREGUI ([id number]) on 03/26/2024 1:52:09 P M Referred By: Antwon Shen Confirmed By: OLGA RIVERA MD
[2024-03-26 07:15] LABS: Absolute Neutrophil Count 3.6 X10^3/uL (2.0-7.7); Basophil# 0.06 X10^3/uL; Eosinophil# 0.12 X10^3/uL; Eosinophils% 2.1 % (0-5); Hematocrit 42.3 % (40-54); Hemoglobin 14.6 g/dL (13.0-16.5); Lymphocyte % 24.3 % (19-41); Mean Corp Hgb Conc 34.5 g/dL (32-36); Mean Platelet Vol. 9.7 fl (6.2-12.0); Monocyte# 0.59 X10^3/uL; Monocyte% 10.2 % (0-10); NRBC Flagged by Analyzer 0 % (0-5); Neutrophil # 3.56 X10^3/uL (2.7-7.7); Neutrophil % 61.9 % (47-70); Platelet Count 180 K/mm3 (150-450); RBC Distribution Width CV 12.8 % (11.6-14.6); RBC Distribution Width SD 40.1 fl (35.1-43.9); Red Blood Count 4.86 M/mm3 (4.6-6.2); White Blood Count 5.8 K/mm3 (4.4-11.0)
[2024-03-26 08:04] LABS: ALB/GLOB Ratio 1.3 RATIO (0.9-2.4); AST(SGOT) 15 U/L (15-37); Alanine Aminotransfer ALT/SGPT 24 U/L (16-61); Albumin, Serum 3.8 g/dL (3.2-5.0); Alkaline Phosphatase 55 U/L (45-117); Anion Gap 4 (5-15); BUN 21 mg/dL (7-18); BUN/Creat Ratio 20.2 RATIO (10-20); Calcium,Total 8.4 mg/dL (8.5-10.1); Chloride 109 mmol/L (98-107); Cholesterol 117 mg/dL (200); Creatinine, Serum 1.04 mg/dL (0.70-1.30); EST Glomerular Filtration Rate 77 mL/min (>60); Est Glom Filt Rate - Afr Amer 93 mL/min (>60); Glucose 118 mg/dL (74-106); High Density Lipoprotein 43 mg/dL; PSA,Total- Diagnostic 5.31 ng/mL (0.0-4.0); Potassium 4.3 mmol/L (3.5-5.1); Protein, Total 6.8 g/dL (6.4-8.2); Sodium Level 140 mmol/L (136-145); Triglycerides 79 mg/dL; Very Low Density Lipoprotein 16 mg/dL (5-40)
[2024-03-26 09:20] LABS: Vitamin B12 386 pg/mL (211-911); Vitamin D,25 Hydroxy 27.2 ng/mL
[2024-04-01] VITALS (9 sets, daily range): BP systolic 115–148; BP diastolic 79–108; PULSE 65–84; RESP 14–73; TEMP 36.2–36.7; O2SAT 80–100; BMI 30.8
--- NOTE | 2024-04-01 08:36 | PCM.HP.BLA ---
History and Physical Date of Admission: 04/01/24 Intake Vital Signs 06/19/2300:38 03/19/2408:55 Height 6 ft 6 ft Weight: 240 lb BMI 32.5 BP 163/114 H Blood Pressure Location Lt brachial Position Sitting Respiration 18 Pulse 79 Pulse Source Monitor Temp 97.9 F Temp Source Temporal Pulse Oximetry (%) 98 Oxygen Delivery Method room air Intake Visit Reasons: UMBILICAL HERNIA Chief Complaint: Umbilical Hernia Is patient in pain?: No Allergies No Known Allergies Allergy (Verified 03/19/24 08:56) Medications ?Medication ?Instructions ?Recorded ?Confirmed ?Type losartan 50 mg tablet 50 mg PO QHS 07/21/14 03/19/24 History tadalafil 5 mg tablet (Cialis) 5 mg PO QHS 12/25/15 03/19/24 History multivitamin (Daily Multiple 1 ea PO DAILY 10/12/16 03/19/24 History tablet) cyanocobalamin (vitamin B-12) 500 500 mcg PO DAILY 03/06/18 03/19/24 History mcg tablet (Vitamin B-12) omeprazole magnesium 20 mg 20 mg PO QHS 03/06/18 03/19/24 History tablet,delayed release (Prilosec OTC) aspirin 81 mg tablet 81 mg PO DAILY 05/30/22 03/19/24 History rosuvastatin 5 mg tablet 5 mg PO QDAY 03/19/24 03/19/24 History saw palmetto 450 mg capsule 450 mg PO QDAY 03/19/24 03/19/24 History PFSH Medical History (Updated 03/19/24 @ 09:[address] Antwon Shen MD) Umbilical hernia Tinnitus Wears glasses Alcohol use Open wound Arthritis Prostate disease Bladder disease High cholesterol Migraine headache History of GI bleed Non-smoker Leg cramps History of pain when walking History of edema History of echocardiogram Hypertension BPH NOS w ur obs/LUTS GERD (gastroesophageal reflux disease) Laceration of right little finger PAD (peripheral artery disease) Hyperlipidemia TIA (transient ischemic attack) Surgical History (Updated 03/19/24 @ 08:55 by Angela Keane) Hx of colonoscopy with polypectomy History of esophagogastroduodenoscopy (EGD) Hx of inguinal hernia surgery Hx of arthroscopic knee surgery History of colonoscopy Family History Grandfather Colon cancer Social History household members: spouse Smoking Status: Never smoker alcohol intake: current alcohol intake frequency: a few times a week substance use type: does not use HPI HPI HPI: Patient is a 63-year-old male here with umbilical hernia. Patient has had several inguinal hernia repairs in the past including 1 laparoscopic using the umbilicus as a port. Patient reports his umbilical hernia has been there about 3 years. This was when his laparoscopic hernia was repaired as well. ROS General General: No weight change, appetite, fatigue, colon cancer, breast cancer or weakness HEENT HEENT: No difficulty swallowing, eye injury, eye surgery, swollen glands or hoarseness Endo Endocrine: No thyroid disease, diabetes mellitus, thyroid cancer, Hair loss, heat intolerance or cold intolerance Skin Skin: No rash or changing moles Breast Breast: No left breast lump, right breast lump, nipple discharge, breast pain, abnormal mammogram, abnormal US or breast enlargement Musc Musculoskeletal: No back problems, arthritis, rheumatoid arthritis, gout or joint pain Cardio Cardiovascular: Yes high blood pressure; No murmur, pacemaker, heart disease, atrial fibrillation, heart attack, heart stent, palpitations, shortness of breat with exertion or chest pain Psych Psychiatric: No depression, anxiety or hearing voices Resp Respiratory: No shortness of breath, No sleep apnea, No cough, No COPD, No asthma, No emphysema and No wheezing Gastro Gastrointestinal: No abdominal pain, No nausea or vomiting, No diarrhea, No constipation, No blood in stool, Yes acid reflux, Yes hemorrhoids, No ulcers, No gallbladder problem and No black,tarry stools Bobby Hematologic: No blood thinners, No blood disorders, No bleeding, No anemia and No blood clots Neuro Neurologic: No system reviewed and no additional complaints, except as documented, No as per HPI, No abnormal gait, No abnormal hearing, No abnormal movements, No abnormal speech, No behavioral changes, No burning sensations, No confusion, No convulsions, No disequilibrium, No dizziness, No localized weakness, No frequent falls, No headache(s), No lack of coordination, No loss of vision, No memory loss, No numbness, No other visual disturbances, No radicular pain, No restless legs, No sensory deficit, No syncope, No tingling, No tremor(s), No weakness and No other Exam Const General: cooperative Orientation: alert and oriented x3 HENMT Head: normal to inspection Neck Neck: normal visual inspection and full ROM Chest Chest palpation & inspection: normal inspection of the chest Resp Effort & Inspection: normal respiratory effort Auscultation: clear to auscultation bilaterally Cardio Rate: regular rate Rhythm: regular rhythm GI Inspection: non-distended Palpation: soft, hernia umbilical and nontender Skin General: no rashes or lesions noted Neuro General: patient alert and patient oriented x3 Extrem General: full ROM Psych Appearance: grossly normal Mental Status: mental status grossly normal Assessment and Plan Assessment and Plan (1) Umbilical hernia: Status: Acute Qualifiers: Obstruction and gangrene presence: without obstruction or gangrene Qualified Code(s): K42.9 - Umbilical hernia without obstruction or gangrene Plan: The patient had laparoscopic inguinal hernia repair and ever since he has had an umbilical hernia. I discussed open umbilical hernia repair with mesh with the patient. I discussed the risks including but not limited to bleeding, infection, injury other organs. Patient understands the risks and is willing to proceed. Antwon Shen MD Pager: [facility] [address] [place] [address], [address] [place] [address] Office: I have examined the patient and the H&P has been reviewed. There are no clinical changes since date of exam.
--- NOTE | 2024-04-01 08:55 | PCM.PRE.AN2 ---
ASA Classification* ASA Classification ASA Classification: 2 Assessment & Plan Anesthesia* Anesthesia Assessment Anesthesia Assessment: Discussed sedation and/or anesthesia options, risks, benefits, and alternatives with patient/parents/legal guardian/POA. Questions invited. The patient/parents/legal guardian/POA seems to understand and agrees to proceed with anesthesia plan. Reviewed the physical assessment, medical history, allergy history and patient home medications list prior to surgery/procedure/anesthetic and documented any changes. Performed airway and anesthesia risk assessments. Anesthesia Type Anesthesia Type: General Anesthesia Focused Assessment* Temperature: 98.1 F Pulse Rate: 77 Blood Pressure: 148/108 Respiratory Rate: 16 Pulse Ox: 99 Airway Assessment Mouth opens: >3 cm Mallampati Score: II Focused Labs Anesthesia Preop lab: CBC WBC 5.8 K/mm3 (4.4-11.0) 03/26/24 07:08 RBC 4.86 M/mm3 (4.6-6.2) 03/26/24 07:08 Hgb 14.6 g/dL (13.0-16.5) 03/26/24 07:08 Hct 42.3 % (40-54) 03/26/24 07:08 Plt Count 180 K/mm3 (150-450) 03/26/24 07:08 CHEMISTRY Potassium 4.3 mmol/L (3.5-5.1) 03/26/24 07:08 Sodium 140 mmol/L (136-145) 03/26/24 07:08 Magnesium 2.3 mg/dL (1.6-2.6) 01/11/23 10:51 Phosphorus 3.1 mg/dL (2.5-4.9) 12/30/14 16:43 BUN 21 mg/dL (7-18) H 03/26/24 07:08 Creatinine 1.04 mg/dL (0.70-1.30) 03/26/24 07:08 Glucose 118 mg/dL (74-106) H 03/26/24 07:08 POC Glucose 97 mg/dL (74-106) 06/13/22 05:58 TSH 2.32 uIU/mL (0.358-3.74) 01/11/23 10:51 COAG PT 12.5 SECONDS (11.7-14.9) 12/25/15 15:55 Pre-Assessment Diagnosis/Proposed Procedure Planned Operative Procedure(s): umbillical hernia repair with mesh Anesthesia History Anesthesia History - sterile process tech: Anesthesia History - sterile process tech Hx Hospitalization No 04/01/24 08:44 Any Problems With Anesthesia No 04/01/24 08:44 Cholinesterase deficiency No 04/01/24 08:44 You/Your Family Experience No 04/01/24 08:44 fever (hyperthermia) with Relationship Recent Exposure to Contagious No 04/01/24 08:48 Disease Does patient have nerve No 04/01/24 08:44 stimulator Patient instructed to have device shut off --Does patient have Pacemaker No 04/01/24 08:48 or ICD? When Was Last Pacemaker Check QUESTION #4 FULL TEXT: You/Your Family Experience fever (hyperthermia) with Anesthesia Last Oral Intake Last Oral intake: Last Oral Intake NPO since 19:00 04/01/24 08:48 Meds taken in AM with sips of water? Meds patient instructed to take am of surgery PONV PONV - sterile process tech: PONV - sterile process tech Female No 04/01/24 08:44 HX of Motion Sickness Yes 04/01/24 08:44 HX of N/V After Surgery No 04/01/24 08:44 Non-Smoker No 04/01/24 08:44 Duration of Surgery greater No 04/01/24 08:44 than 60 minutes Number of Risk Factors 1 04/01/24 08:44 PONV Score Low Risk 04/01/24 08:44 Height & Weight Height & Weight: Anesthesia: Height & Weight Height 6 ft 1 in 04/01/24 08:48 Weight: 106 kg 04/01/24 08:48 Body Mass Index (BMI) 30.8 04/01/24 08:48 Respiratory Assessment Respiratory Assessment - sterile process tech: Respiratory Tract Infection Hx - sterile process tech Hx Respiratory Tract Infection No 04/01/24 08:44 STOP Sleep Apnea STOP Sleep Apnea - sterile process tech: STOP Sleep Apnea - sterile process tech Hx Hypertension Yes: CONTROLLED WITH MED 04/01/24 08:44 Hx Sleep Apnea No 04/01/24 08:44 CPAP No 04/01/24 08:44 BIPAP No 04/01/24 08:44 Do you snore loudly (louder No 04/01/24 08:44 than talking or can be heard Do you often feel tired/ No 04/01/24 08:44 fatigued/ sleepy during daytime? Has anyone observed you stop No 04/01/24 08:44 breathing during sleep? STOP Results Negative 04/01/24 08:44 QUESTION #5 FULL TEXT : Do you snore loudly (louder than talking or can be heard through closed doors)? 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 Specify any problems Hx of Preganancy in last 3 N/A 04/01/24 08:44 Months Nurse Filling Out Transfusion CPARSONS 04/01/24 08:44 & Questions: Date: 04/01/24 04/01/24 08:44 Time: 08:46 04/01/24 08:44 Patient unable to answer at this time (ie. confused, unrespo /Reproduction History /Reproductive History - sterile process tech: /Reproductive Hx- sterile process tech Hx Now No 04/01/24 08:44 Gestational Age (in weeks): EDC: Hx Hx Para Hx Section SAB No 04/01/24 08:44 Active Medications Active Medications: Current Medications Generic Name Dose Route Start Last Admin Trade Name Freq PRN Reason Stop Dose Admin Cefazolin Sodium 2 gm/ N/A 20 mls @ 400 mls/hr 04/01/24 10:00 IV 04/01/24 10:02 PREOP ONE Lactated Ringer's 1,000 mls @ 15 mls/hr 04/01/24 08:45 IV 04/06/24 22:04 .Q48H [facility] Protocol PFSH Medical History Umbilical hernia Tinnitus Wears glasses Alcohol use Open wound Arthritis Prostate disease Bladder disease High cholesterol Migraine headache History of GI bleed Non-smoker Leg cramps History of pain when walking History of edema History of echocardiogram Hypertension BPH NOS w ur obs/LUTS GERD (gastroesophageal reflux disease) Laceration of right little finger PAD (peripheral artery disease) Hyperlipidemia TIA (transient ischemic attack) Home Medications ?Medication ?Instructions ?Recorded ?Last Taken ?Type losartan 50 mg tablet 50 mg PO QHS 07/21/14 06/12/22 History tadalafil 5 mg tablet (Cialis) 5 mg PO QHS PRN URINATION 12/25/15 06/12/22 History multivitamin (Daily Multiple 1 ea PO DAILY 10/12/16 06/12/22 History tablet) cyanocobalamin (vitamin B-12) 500 500 mcg PO DAILY 03/06/18 06/12/22 History mcg tablet (Vitamin B-12) aspirin 81 mg tablet 81 mg PO DAILY 05/30/22 06/05/22 History rosuvastatin 5 mg tablet 5 mg PO QDAY 03/19/24 Unknown History saw palmetto 450 mg capsule 450 mg PO QDAY 03/19/24 Unknown History omeprazole 20 mg capsule,delayed 20 mg PO QHS 03/24/24 Unknown History release Allergy/AdvReac Type Severity Reaction Status Date / Time No Known Allergies Allergy Verified 04/01/24 08:42 Family History Grandfather Colon cancer Surgical History Hx of total knee replacement Hx of colonoscopy with polypectomy History of esophagogastroduodenoscopy (EGD) Hx of inguinal hernia surgery Hx of arthroscopic knee surgery History of colonoscopy Social History household members: spouse Smoking Status: Never smoker alcohol intake: current alcohol intake frequency: a few times a week substance use type: does not use Review of Systems (Anesthesia) ROS Narrative System reviewed and no additional complaints, except as documented.
[2024-04-01] MEDS: Lactated Ringers 1,000 ML 15 ML IV (08:57)
--- NOTE | 2024-04-01 09:01 | PCM.POST.ANE ---
Anesthesia: Postop Eval I Current Vital Signs Temperature: 97.2 F Pulse Rate: 84 Blood Pressure: 122/79 Respiratory Rate: 14 Pulse Ox: 100 Oxygen Delivery Method: Nasal Cannula Oxygen Flow Rate (L/min): 4 Assessment Airway patent: Yes Spontaneous unlabored respirations: Yes Mental status: Awake nausea: No Vomiting: No Anesthesia Complication: No Fluid Hydration Crystalloid volume administer (ml): 1,000 Total IV fluid infused: 1,000 Progress Note Anesthesia document: Postop Eval 1 completed: Yes
[2024-04-01] MEDS: Cefazolin 2 GM in Syringe IV (09:31)
[2024-04-01] MEDS: Bupivacaine Mpf 0.5% 30 ML VIAL (09:44)
--- NOTE | 2024-04-01 10:00 | HERN_PTH ---
PATIENT: HUMZA SOLO LOC: [facility] [place] U#:[id number] AGE/SX: 63/M ROOM: RE04/01/[address]: Dr. Antwon Shen MD : 1960 BED: DIS: 04/01/2024 SPEC #: [id number] RECD: 04/01/24 11:26 STATUS: YVETTE GRAHAM #: [id number] ADA: 04/01/24 10:[address]: Antwon Shen DEPT: SURGICAL PATHOLOGY RECD BY: Tan Zhou ENTERED: 04/01/24 11:52 SP TYPE: Hernia OTHR DR: Pavel Lopes MD Tissues: HERNIA Procedures: Surgery Specimen Level II HEADER OPERATION: Hernia, umbilical repair with mesh PRE-OP DIAGNOSIS: Umbilical hernia TISSUE SUBMITTED: Hernia sac MICROSCOPIC DIAGNOSIS Hernia sac: Fibroadipose and fibroconnective tissue, consistent with hernia sac. SJ.mr 04/02/2024 MICROSCOPIC DESCRIPTION Slides are reviewed. GROSS DESCRIPTION Received in fixative is one container labeled with the patient's name and designated Hernia sac. The specimen consists of a piece of [id number] soft tissue measuring 3.2 x 1.5 x 0.5cm. The specimen is bisected and submitted entirely in one cassette. 04/01/2024 TC:5 CPT:38977
--- NOTE | 2024-04-01 10:05 | PCM.OPRPT ---
Operative Report (Standard) Operative Information Surgery/Procedure Performed: Umbilical hernia repair with mesh less than 3 cm Surgeon: Antwon Shen Date of Procedure: 04/01/24 Procedure Start Time: 09:44 Procedure Stop Time: 10:01 Pre-Operative Diagnosis: Umbilical hernia less than 3 cm Post-Operative Diagnosis: Same Select all DRAINS/GRAFTS/IMPLANTS that apply: Implanted device Implanted device details: Ventralex ST mesh small Type of Anesthesia: General/Regional Estimated Blood Loss: 5 Specimen collected: Yes Description of specimen(s) removed: Hernia sac Description of surgery: Patient was brought back to the operating room and general anesthesia was induced. The abdomen was prepped and draped in the usual sterile fashion. A curvilinear incision was marked inferior to the umbilicus and then injected with local anesthetic. Incision was then made and the umbilical stalk was cleared off of the hernia sac using electrocautery. Next the hernia sac was dissected free circumferentially using electrocautery dissection. It was then reduced. The preperitoneal space was developed enough to allow for the mesh. Next a small Ventralex ST mesh was placed into the preperitoneal space and sutured to the anterior fascia using 2-0 PDS suture. The area was irrigated and suctioned dry and the fascia was closed using interrupted 0 Nurolon sutures. Next the umbilical stalk was sutured to the fascia using 3-0 Vicryl suture. Next the skin was reapproximated with several 3-0 Vicryl sutures. Steri-Strips and bandages were applied. Patient was taken to PACU in stable addition tolerated the procedure well. 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
--- NOTE | 2024-04-01 10:10 | DCINST_ITS ---
Discharge Instructions Procedure Hernia Diet Discharge Diet: Light diet - advance as tolerated Activity Discharge Activity: May Not Drive (for 2-3 days or while taking narcotic pain meds.) and May Shower (with the bandage in place 1-2 days after surgery.) Lifting Restrictions: 20 pounds for 4 weeks. Additional Activity Instructions:: Climbing stairs is fine, walking is encouraged. Sitting in bed may be uncomfortable. Sitting up using your lateral muscles (sitting up sideways) is usually more comfortable. Do not drive, work heavy equipment of sign legal documents for 24 hours. Pain medications may cause nausea, you should typically eat light foods as you take your pain medications. Pain medications may also cause constipation. If you have difficulty with this, discuss with your doctor. Use ice 20 minutes on 20 minutes off as needed for pain control today, alternate ibuprofen and Tylenol for pain control, oxycodone for breakthrough pain. Resume aspirin tomorrow. Dressing / Incision Call your doctor if your incision/area has: Continuous Slow Oozing, Sudden Increased Bleeding, Increased Pain/ Swelling, Increased Redness and Foul Smellin g Discharge Call your doctor if you observe: Fever of 101 or Higher Suture Line Care: Avoid Pulling/Pushing and Avoid Pinching/Bending Remove Dressing in: 2 days (Remove clear bandages in 2 days, remove Steri-Strips in 7 to 10 days.) Cleanse incision/area with: Soap & Water Follow Up Care Please Follow Up With: Antwon Shen MD When: Please call to schedule 2 week follow up appointment. [phone] Test Results: Test results from this visit will be discussed in further detail at your follow- up appointment, if applicable. Discharge Plan Admission Attending Provider: Antwon Shen Primary Care Provider: Pavel Lopes Consulting Providers: Pavel Lopes Instructions Print Language: Croatian Discharge Orders/Prescriptions Prescriptions: New oxycodone 5 mg Tablet 5 - 10 mg PO Q4H PRN PRN (Reason: Pain Score 4-10) 5 Days Qty: 10 0RF No Action rosuvastatin 5 mg tablet 5 mg PO QDAY saw palmetto 450 mg capsule 450 mg PO QDAY Rx Instructions: give with food (meal/snack) losartan 50 MG tablet 50 mg PO QHS Patient Comments: blood pressure tadalafil [Cialis] 5 MG tablet 5 mg PO QHS PRN (Reason: URINATION) Patient Comments: erectile dysfunction multivitamin [Daily Multiple] 1 EACH tablet 1 ea PO DAILY cyanocobalamin (vitamin B-12) [Vitamin B-12] 500 MCG tablet 500 mcg PO DAILY aspirin 81 mg Tablet 81 mg PO DAILY Patient Comments: STOP PRIOR TO PROCEDURE 5 DAYS omeprazole 20 mg capsule,delayed release(DR/EC) 20 mg PO QHS Referrals / Follow Up: Pavel Lopes MD [Primary Care Provider] - Disposition Disposition (needs filled in before D/C Order can be placed): Home, Self Care
--- NOTE | 2024-04-01 10:12 | PCM.POST.ANE ---
Anesthesia: Postop Eval I Current Vital Signs Temperature: 97.4 F Pulse Rate: 80 Blood Pressure: 132/87 Respiratory Rate: 14 Pulse Ox: 80 Oxygen Delivery Method: Simple Mask Oxygen Flow Rate (L/min): 6 Assessment Airway patent: Yes Spontaneous unlabored respirations: Yes Mental status: Awake nausea: No Vomiting: No Anesthesia Complication: No Fluid Hydration Crystalloid volume administer (ml): 800 Total IV fluid infused: 800 Progress Note Anesthesia document: Postop Eval 1 completed: Yes
[2024-04-01 10:49] LABS: Hemoglobin A1c 5.3 % (3.8-5.6)
--- NOTE | 2024-04-01 11:51 | POSTOPAN2_ITS ---
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.HBARR Spontaneous unlabored Yes 04/01/24 10:14 SEWER PIPE PRESS OPERATOR.HBARR respirations Mental status Awake 04/01/24 10:14 SEWER PIPE PRESS OPERATOR.HBARR nausea No 04/01/24 10:14 SEWER PIPE PRESS OPERATOR.HBARR Vomiting No 04/01/24 10:14 SEWER PIPE PRESS OPERATOR.HBARR Anesthesia Postop Eval I: Fluid Summary Crystalloid volume administer 800 04/01/24 10:14 SEWER PIPE PRESS OPERATOR.HBARR (ml) Colloids volume administered ( ml) Blood Product volume administered (ml) Total IV fluid infused 800 04/01/24 10:14 SEWER PIPE PRESS OPERATOR.HBARR Anesthesia Postop Eval I: Summary Notes Anesthesia Complication No 04/01/24 10:14 SEWER PIPE PRESS OPERATOR.HBARR Anesthesia Complication Comment: Post-operative progress note Anesthesia: Postop Eval II Evaluation Mental status: Awake Pain Level: 0 nausea: No Vomiting: No
--- NOTE | 2024-04-01 11:51 | PCM.POSTANE2 ---
Anesthesia Postop Eval I Sum Postop Eval Completion status Anesthesia document: Postop Eval 1 completed: Yes Anesthesia Postop Eval I Summary Anesthesia Postop Eval I Summary: Anesthesia Postop Eval I: Assessment Summary Airway patent Yes 04/01/24 10:14 FIELD TALENT QUALIFICATION SPECIALIST.HBARR Spontaneous unlabored Yes 04/01/24 10:14 FIELD TALENT QUALIFICATION SPECIALIST.HBARR respirations Mental status Awake 04/01/24 10:14 FIELD TALENT QUALIFICATION SPECIALIST.HBARR nausea No 04/01/24 10:14 FIELD TALENT QUALIFICATION SPECIALIST.HBARR Vomiting No 04/01/24 10:14 FIELD TALENT QUALIFICATION SPECIALIST.HBARR Anesthesia Postop Eval I: Fluid Summary Crystalloid volume administer 800 04/01/24 10:14 FIELD TALENT QUALIFICATION SPECIALIST.HBARR (ml) Colloids volume administered ( ml) Blood Product volume administered (ml) Total IV fluid infused 800 04/01/24 10:14 FIELD TALENT QUALIFICATION SPECIALIST.HBARR Anesthesia Postop Eval I: Summary Notes Anesthesia Complication No 04/01/24 10:14 FIELD TALENT QUALIFICATION SPECIALIST.HBARR Anesthesia Complication Comment: Post-operative progress note Anesthesia: Postop Eval II Evaluation Mental status: Awake Pain Level: 0 nausea: No Vomiting: No
== END 2024-04-01 11:54 | disposition home or self-care (01) ==
LOC: SDC 08:14 → AC 08:15
PROVIDERS: PCP Family Medicine; Referring Provider Surgery; Visit Provider Surgery
PROC: (CPT 49591; principal; 2024-04-01 09:45)
DX: K42.9 Umbilical hernia without obstruction or gangrene (principal); Z80.0 Family history of malignant neoplasm of digestive organs; E78.00 Pure hypercholesterolemia, unspecified; Z86.73 Personal history of transient ischemic attack (TIA), and cerebral infarction without residual deficits; E78.5 Hyperlipidemia, unspecified; K21.9 Gastro-esophageal reflux disease without esophagitis; Z86.0100 Personal history of colon polyps, unspecified; Z87.19 Personal history of other diseases of the digestive system; I10 Essential (primary) hypertension
CPT/HCPCS: 49591; 00830; 36415; 80053; 80061; 82306; 82607; 83036; 84153; 85025; 88302; 93005; J7120; C1781; J2405

== ENCOUNTER → 2024-09-07 | Outpatient (CLI) | payer OTHER, SELFPAY | END | disposition home or self-care (01) | PROVIDERS: PCP Family Medicine; Referring Provider Family Medicine; Visit Provider Family Medicine | DX: R97.20 Elevated prostate specific antigen [PSA] (principal) | CPT/HCPCS: 36415; 84153; G0103 ==

== ENCOUNTER → 2024-09-21 | Outpatient (CLI) | payer OTHER, SELFPAY ==
[2024-09-23 13:08] LABS: PSA, Free 0.84 ng/mL; PSA, Free % 15.1 % (.)
== END | disposition home or self-care (01) ==
LOC: LAB 15:58
PROVIDERS: PCP Family Medicine; Referring Provider Urology; Visit Provider Urology
DX: R97.20 Elevated prostate specific antigen [PSA] (principal)
CPT/HCPCS: 36415; 84153; 84154

== ENCOUNTER → 2025-03-22 | Outpatient (CLI) | payer OTHER, SELFPAY ==
[2025-03-22 16:44] LABS: PSA,Total- Diagnostic 5.97 ng/mL (0.00-4.00)
== END | disposition home or self-care (01) ==
LOC: LAB 15:09
PROVIDERS: PCP Family Medicine; Referring Provider Urology; Visit Provider Urology
DX: R97.20 Elevated prostate specific antigen [PSA] (principal)
CPT/HCPCS: 36415; 84153